=== PATIENT | female | born 1940 | race Caucasian/White ===

== ENCOUNTER → 2016-12-23 | Outpatient (CLI) | payer BC | END | disposition home or self-care (01) | LOC: C.PAPS 14:54 | PROVIDERS: ATTEND Obstetrics & Gynecology | DX: Z12.4 Encounter for screening for malignant neoplasm of cervix (principal) ==

== ENCOUNTER → 2017-01-02 | Outpatient (CLI) | payer BC ==
--- NOTE | 2017-01-02 17:16 | DIAGNOSTIC IMAGING REPORT ---
RIGHT FOOT 3 VIEWS, RIGHT ANKLE 3 VIEWS HISTORY: S99.921A Right foot [id number] Right COMPARISON: None. FINDINGS: There is no fracture or dislocation. Mild soft tissue swelling within the right ankle. There is a small posterior calcaneal spur. No radiopaque foreign bodies. IMPRESSION: No fracture or dislocation within the right ankle or right foot. Electronically signed by: Richar Joy M.D. 01/02/2017 5:15 PM Dictated Date/Time: 01/02/2017 5:12 PM
--- NOTE | 2017-01-02 17:16 | DIAGNOSTIC IMAGING REPORT ---
RIGHT FOOT 3 VIEWS, RIGHT ANKLE 3 VIEWS HISTORY: S99.921A Right foot [id number] Right COMPARISON: None. FINDINGS: There is no fracture or dislocation. Mild soft tissue swelling within the right ankle. There is a small posterior calcaneal spur. No radiopaque foreign bodies. IMPRESSION: No fracture or dislocation within the right ankle or right foot. Electronically signed by: Richar Joy M.D. 01/02/2017 5:15 PM Dictated Date/Time: 01/02/2017 5:12 PM
== END | disposition home or self-care (01) ==
LOC: C.RAD1850 16:53
PROVIDERS: ATTEND Nurse Practitioner Adult Health
DX: S99.911A Unspecified injury of right ankle, initial encounter (principal); S99.921A Unspecified injury of right foot, initial encounter; X58.XXXA Exposure to other specified factors, initial encounter

== ENCOUNTER → 2017-03-24 | Outpatient (CLI) | payer BC ==
[~2017-03-24] MED LIST: CHOL1000 PO; CHOLTAB11 PO; COEN1CAP28 PO; CONJ0.3T3 PO; CYAN10005 PO; CYAN500T PO; GINS1CAP PO; GLC/500 PO; GLUC10007 PO; GLUC500T35 PO; LPT40 PO; OMEG10007 PO; PLV75 PO
--- NOTE | 2017-03-24 16:45 | MAMMOGRAPHY REPORT ---
BILATERAL DIGITAL SCREENING MAMMOGRAM WITH CAD: 03/24/2017 CLINICAL HISTORY: Routine screening. Patient has no complaints. TECHNIQUE: Bilateral CC and MLO views were obtained. Current study was also evaluated with a Comput er Aided Detection (CAD) system. COMPARISON: Comparison is made to exams dated: 10/14/2013 mammogram, 10/08/2012 mammogram, 10/03/2011 mammogram, 09/14/2015 mammogram, 10/01/2010 mammogram, and 09/29/2009 mammogram - [facility]. BREAST COMPOSITION: There are scattered areas of fibroglandular density in both breasts. FINDINGS: There is a stable lymph node in the right breast. There are mild vascular calcifications in the left breast. No new suspicious mass, architectural distortion or cluster of microcalcificat ions is seen. IMPRESSION: ACR BI-RADS CATEGORY 2: BENIGN There is no mammographic evidence of malignancy. A 1 year screening mammogram is recommended. The p atient will receive written notification of the results. Approximately 10% of breast cancers are not detected with mammography. A negative mammographic repor t should not delay biopsy if a clinically suggestive mass is present. Lana Zhang M.D. ay/:03/24/2017 16:07:14 Rental Sales Agent: Daily SHERMAN(R)(M), [facility] letter sent: Normal 1/2 BI-RADS Code: ACR BI-RADS Category 2: Benign
== END | disposition home or self-care (01) ==
LOC: C.MAMM 15:23
PROVIDERS: ATTEND Obstetrics & Gynecology
DX: Z12.31 Encounter for screening mammogram for malignant neoplasm of breast (principal)

== ENCOUNTER → 2017-09-11 | Outpatient (CLI) | payer BC ==
[2017-09-11 10:06] LABS: ALT/SGPT 34 U/L (12-78); AST/SGOT 26 U/L (15-37); BLOOD UREA NITROGEN 17 mg/dl (7-18); BUN/CREATININE RATIO 17.2 (10-20); CALCIUM 9.2 mg/dl (8.5-10.1); CARBON DIOXIDE 25 mmol/L (21-32); CHLORIDE 104 mmol/L (98-107); CHOLESTEROL 269 mg/dl (0-200); CREATININE 0.97 mg/dl (0.60-1.20); GLUCOSE 173 mg/dl (70-99); POTASSIUM 4.1 mmol/L (3.5-5.1); SODIUM 138 mmol/L (136-145); TRIGLYCERIDES 270 mg/dl (0-150); VERY LOW DENSITY LIPOPROT CALC 54 mg/dl
[2017-09-11 10:15] LABS: ALKALINE PHOSPHATASE 70 U/L (45-117); CHOLESTEROL/HDL RATIO 7.7; HDL CHOLESTEROL 35 mg/dl; LDL CHOLESTEROL CALCULATED 180 mg/dl
[2017-09-11 14:39] LABS: ESTIMATED AVERAGE GLUCOSE 169 mg/dl; HA1C FLAG Normal (Normal)
== END | disposition home or self-care (01) ==
LOC: C.LAB1850 08:42
PROVIDERS: ATTEND Physician Assistant Medical
DX: E11.9 Type 2 diabetes mellitus without complications (principal); E78.5 Hyperlipidemia, unspecified; I10 Essential (primary) hypertension

== ENCOUNTER 2017-10-25 09:44 | Inpatient (IN) | payer BC, OTHER ==
[~2017-10-25] VITALS: Ht 160 cm; Wt 79.5 kg
[2017-10-25] MEDS ORDERED: ACETAMINOPHEN 500 MG TAB PO STA (10:00)
[2017-10-25] MEDS ORDERED: METOCLOPRAMIDE HCL INJ 5 MG/ML 2 ML VIAL IV STA (10:00)
--- NOTE | 2017-10-25 10:02 | EMERGENCY ROOM VISIT NOTE ---
History Report prepared by Marcelina: Jami Slaughter Under the Supervision of: Dr. Yimi Davis M.D. First contact with patient: 09:55 Chief Complaint: STROKE SYMPTOMS Stated Complaint: BLURRY VISION, CAN'T WALK Nursing Triage Summary: pt reports feeling dizzy last night prior to bed when she awoke this am unable to get out of bed. felt like left leg not putting it down right. no problems with chocolate maker. had foot drag earlier. had blurred vision upon waking still not right History of Present Illness The patient is a 77 year old white female with a past medical history of diabetes who presents to the ED with a cc of intermittent stroke symptoms beginning around 1630 yesterday afternoon. Positive dizzy spells, blurred vision , and difficulty ambulating. The patient states that her symptoms began yesterday with dizzy spells. She states that her vision then became blurry and then states that she had difficulty walking. The patient states that she recently began metformin, noting that she developed a headache when she began the medication. Source of History: patient Onset: 1630 yesterday afternoon Position: other (global) Quality: other (stroke symptoms) Timing: intermittent Note: Associated symptoms: dizzy spells, blurred vision, difficulty ambulating Review of Systems See HPI for pertinent positives and negatives. A total of ten systems were reviewed and were otherwise negative. Past Medical & Surgical Medical Problems: (1) Acute cerebral infarction (2) Diabetes (3) possibel cva Family History No pertinent family history stated Social History Smoking Status: Never Smoker Marital Status: Current/Historical Medications Scheduled Cholecalciferol (Vitamin D3), 1,000 INTER.UNIT PO DAILY Cyanocobalamin (Vitamin B-12), 500 MCG PO DAILY Estrog Conj/Medryoxyprog Acet (Prempro 0.3MG/1.5MG), 1 TAB PO DAILY Ginseng (Ginseng Extract), 100 MG PO DAILY Glucosamine Sulfate (Glucosamine), 1,000 MG PO DAILY Metformin Hcl (Glucophage), 500 MG PO DAILY Miscellaneous Medications Fish Oil ([place]-3), 1 CAP PO Allergies Coded Allergies: Codeine (Unverified Allergy, Unknown, ANXIOUS, 10/25/17) Penicillins (Unverified Allergy, Unknown, RASH, 10/25/17) Physical Exam Vital Signs Date Time Temp Pulse Resp B/P (MAP) Pulse Ox O2 Delivery O2 Flow Rate FiO2 10/25/17 13:30 64 10/25/17 13:15 76 18 191/83 97 Room Air 10/25/17 10:18 76 16 183/84 97 Room Air 10/25/17 09:59 97 Room Air 10/25/17 09:45 36.9 82 18 210/99 99 Room Air Physical Exam GENERAL: Awake, alert, well-appearing, NAD HENT: Normocephalic, atraumatic. EYES: Normal conjunctiva. Sclera non-icteric. NECK: Supple. No nuchal rigidity. FROM. RESPIRATORY: CTAB, no rhonchi, wheezing, crackles CARDIAC: RRR, no MRG ABDOMEN: Soft, NTND, BS+ MSK: No chest wall TTP, no LE edema NEURO: CN 2-12 intact, 5/5 upper and lower extremity strength, questionable pronator drift of left upper extremity, some dysmetria with finger to nose, no sensory deficits. SKIN: No rash or jaundice noted. Medical Decision & Procedures ER Provider Diagnostic Interpretation: Radiology results as stated below per my review and radiologist interpretation: ANGIOGRAPHY HEAD COMBO CLINICAL HISTORY: Weakness. Blurry vision. COMPARISON STUDY: MRI of the brain March 27, 2009. TECHNIQUE: Unenhanced and arterial phase imaging of the head was performed. Injection of 118 cc of Optiray 320 IV was uneventful. Sagittal and coronal reconstructions were viewed as well as maximal intensity projections on an independent 3-D workstation. FINDINGS: No acute intracranial hemorrhage, midline shift or mass effect is present. Ventricular system is normal. Basilar cisterns are patent. There are no extra-axial collections. 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 Mild white matter hypodensity suggests small vessel disease. There are no findings to suggest acute dural sinus thrombosis or acute territorial infarct. Visualized portions of the sinuses and mastoid air cells are clear. There are no significant calvarial abnormality. The bilateral M1, M2, A1 and A2 segments are patent. There is moderate to severe narrowing of the right supraclinoid ICA. There is moderate plaque within the bilateral cavernous carotids. There is persistence of the left posterior cerebral artery. Note is made of apparent abrupt cut off of the right posterior cerebral artery shown image 75 of 215. No intracranial aneurysm is identified. IMPRESSION: 1. No acute intracranial hemorrhage or mass effect. 2. Apparent abrupt cut off of the proximal middle right posterior cerebral artery. This could be correlated with evidence for an acute right CAFETERIA CASHIER infarct. 3. Moderate to severe stenosis of the supraclinoid right ICA. Electronically signed by: Stewart Anne M.D. 10/25/2017 12:10 PM Dictated Date/Time: 10/25/2017 11:59 AM CHEST ONE VIEW PORTABLE CLINICAL HISTORY: Weakness. COMPARISON STUDY: Chest radiograph June 26, 2015. FINDINGS: There is no pneumothorax or pleural effusion. Pulmonary vascularity is normal. No consolidation. There are median sternotomy wires and clips from bypass grafting. No consolidation is identified. IMPRESSION: No acute cardiopulmonary findings. Electronically signed by: Stewart Anne M.D. 10/25/2017 11:41 AM Dictated Date/Time: 10/25/2017 11:[address] ANGIOGRAPHY OF THE NECK WITH CONTRAST CLINICAL HISTORY: Weakness COMPARISON STUDY: No previous studies for comparison. Technique: CT angiography of the carotid and vertebral arteries was obtained using Patience 320 IV and 3D reconstruction on an independent workstation. NASCET criteria was utilized. A dose lowering technique was utilized adhering to the principles of ALARA. CT DOSE: 1064.33 mGy.cm Findings: There is moderate plaque within the bilateral distal common carotid and internal carotid arteries with mild stenosis of the proximal bilateral internal carotid arteries bilaterally. 40% narrowing of the proximal right internal carotid artery is noted with 20% narrowing of the proximal left internal carotid artery. The left vertebral artery is dominant and patent. The right vertebral artery is not opacified within its proximal to mid aspect. There is distal reconstitution. The right vertebral artery is diminutive. There is no cervical lymphadenopathy. Lung apices are clear. Median sternotomy wires are noted. IMPRESSION: 1. 40% stenosis of the proximal right internal carotid artery and 20% stenosis of the proximal left internal carotid artery. Moderate atherosclerotic plaque within the bilateral common carotid and internal carotid arteries. 2. No contrast within the proximal to mid right vertebral artery with distal reconstitution. Dominant, patent left vertebral artery. Electronically signed by: Stewart Anne M.D. 10/25/2017 12:18 PM Dictated Date/Time: 10/25/2017 12:12 PM Laboratory Results 10/25/17 10:07 Red Blood Count 4.99, Mean Corpuscular Volume 89.8, Mean Corpuscular Hemoglobin 30.3, Mean Corpuscular Hemoglobin Concent 33.7, Mean Platelet Volume 10.8, Neutrophils (%) (Auto) 65.2, Lymphocytes (%) (Auto) 26.0, Monocytes (%) (Auto) 6.9, Eosinophils (%) (Auto) 1.4, Basophils (%) (Auto) 0.3, Neutrophils # (Auto) 7.95, Lymphocytes # (Auto) 3.17, Monocytes # (Auto) 0.84, Eosinophils # (Auto) 0.17, Basophils # (Auto) 0.04 10/25/17 10:07 Test 10/25/17 10:07 10/25/17 11:15 White Blood Count 12.19 K/uL (4.8-10.8) Red Blood Count 4.99 M/uL (4.2-5.4) Hemoglobin 15.1 g/dL (12.0-16.0) Hematocrit 44.8 % (37-47) Mean Corpuscular Volume 89.8 fL (80-100) Mean Corpuscular Hemoglobin 30.3 pg (25-34) Mean Corpuscular Hemoglobin Concent 33.7 g/dl (32-36) Platelet Count 350 K/uL (130-400) Mean Platelet Volume 10.8 fL (7.4-10.4) Neutrophils (%) (Auto) 65.2 % Lymphocytes (%) (Auto) 26.0 % Monocytes (%) (Auto) 6.9 % Eosinophils (%) (Auto) 1.4 % Basophils (%) (Auto) 0.3 % Neutrophils # (Auto) 7.95 K/uL (1.4-6.5) Lymphocytes # (Auto) 3.17 K/uL (1.2-3.4) Monocytes # (Auto) 0.84 K/uL (0.11-0.59) Eosinophils # (Auto) 0.17 K/uL (0-0.5) Basophils # (Auto) 0.04 K/uL (0-0.2) RDW Standard Deviation 43.6 fL (36.4-46.3) RDW Coefficient of Variation 13.3 % (11.5-14.5) Immature Granulocyte % (Auto) 0.2 % Immature Granulocyte # (Auto) 0.02 K/uL (0.00-0.02) Prothrombin Time 10.2 SECONDS (9.0-12.0) Prothromb Time International Ratio 1.0 (0.9-1.1) Activated Partial Thromboplast Time 23.4 SECONDS (21.0-31.0) Partial Thromboplastin Ratio 0.9 Anion Gap 7.0 mmol/L (3-11) Est Creatinine Clear Calc Drug Dose 51.3 ml/min Estimated GFR () 67.1 Estimated GFR (Non- 57.9 BUN/Creatinine Ratio 17.2 (10-20) Calcium Level 9.6 mg/dl (8.5-10.1) Phosphorus Level 2.0 mg/dl (2.5-4.9) Magnesium Level 2.1 mg/dl (1.8-2.4) Total Bilirubin 0.4 mg/dl (0.2-1) Direct Bilirubin < 0.1 mg/dl (0-0.2) Aspartate Amino Transf (AST/SGOT) 32 U/L (15-37) Alanine Aminotransferase (ALT/SGPT) 41 U/L (12-78) Alkaline Phosphatase 90 U/L (45-117) Troponin I < 0.015 ng/ml (0-0.045) Total Protein 8.2 gm/dl (6.4-8.2) Albumin 4.1 gm/dl (3.4-5.0) Thyroid Stimulating Hormone (TSH) 1.810 uIu/ml (0.300-4.500) Urine Color YELLOW Urine Appearance CLEAR (CLEAR) Urine pH 5.0 (4.5-7.5) Urine Specific [place] 1.013 (1.000-1.030) Urine Protein NEG (NEG) Urine Glucose (UA) NEG (NEG) Urine Ketones NEG (NEG) Urine Occult Blood NEG (NEG) Urine Nitrite NEG (NEG) Urine Bilirubin NEG (NEG) Urine Urobilinogen NEG (NEG) Urine Leukocyte Esterase SMALL (NEG) Urine WBC (Auto) 1-5 /hpf (0-5) Urine RBC (Auto) 0-4 /hpf (0-4) Urine Hyaline Casts (Auto) 1-5 /lpf (0-5) Urine Epithelial Cells (Auto) >30 /lpf (0-5) Urine Bacteria (Auto) NEG (NEG) Urine Yeast (Auto) (NONE PRSENT) Laboratory results reviewed by me Medications Administered Medications (Trade) Dose Ordered Sig/Flor Route Start Time Stop Time Status Last Admin Dose Admin Metoclopramide HCl (Reglan Inj) 10 mg NOW STAT IV 10/25/17 10:00 10/25/17 10:05 DC 10/25/17 10:40 10 MG Acetaminophen (Tylenol Tab) 1,000 mg NOW STAT PO 10/25/17 10:00 10/25/17 10:05 DC 10/25/17 10:40 1,000 MG Aspirin (Aspirin Chew) 324 mg NOW STAT PO 10/25/17 12:22 10/25/17 12:23 DC 10/25/17 13:14 324 MG Atorvastatin Calcium (Lipitor Tab) 40 mg ONE STAT PO 10/25/17 12:22 10/25/17 12:23 DC 10/25/17 13:14 40 MG ECG Indication: weakness Rate (beats per minute): 90 Rhythm: normal sinus Findings: PVC (occasional), other (normal intervals, T wave flattening laterally, no other STS or TWI) ED Course 0955: The patient was evaluated in room B1. A complete history and physical exam was performed. 1207: I discussed the patients case with Dr. Anne, Radiology. He states that the patient has a CAFETERIA CASHIER infarct. 1225: I reevaluated the patient and she is resting comfortably. I discussed the exam findings with her and I discussed the treatment plan. She verbalized complete understanding and agreement. She is going to be evaluated for further treatment. 1229: I discussed the patients case with Dr. West, [facility]. He is going to evaluate the patient for further treatment. Medical Decision Differential diagnosis: Etiologies such as benign positional vertigo, dehydration, hypovolemia, anemia, tumor, infection, hypoglycemia, electrolyte abnormalities, cardiac sources, intracerebral event, toxicologic, neurologic, as well as others were entertained. Patient was seen and evaluated at the bedside. Patient states that she has been having some mild headache as well as some vertiginous symptoms stating that she has some imbalance problems. Patient does not really complain of dizziness with room spinning but states that if she gets up she does not feel safe and as though she is going to fall. has 1 recent medication change medicines with the metformin. Patient states that her sugars been fairly consistent. Patient point care blood sugar today was under 200. Patient is hypertensive in the 210s systolic. Patient's neuro exam did show questionable left upper extremity drift as well as some mild dysmetria on the left upper extremity. Patient does have good [id number] and no sensory deficits. The rest of the neuro exam is fairly unremarkable. Patient states her symptoms began and have been somewhat intermittent beginning around 4:35 PM yesterday. Patient denies any recent trauma. Patient did have her blood work completed. Patient had some mild hypophosphatemia. Patient's CTA was concerning for possible CAFETERIA CASHIER infarct and occlusion. She is well outside the window given her symptoms began at 430pm yesterday thus TPA was not administered. Patient was ordered a full dose aspirin as well as high-dose statin. I did speak with the hospitalist who agreed to admit the patient for further evaluation and treatment. Medication Reconcilliation Current Medication List: was personally reviewed by me Blood Pressure Screening Patient's blood pressure: Elevated blood pressure Blood pressure disposition: Referred to PCP (to hospitalist) Consults Time Called: 1221 Consulting Physician: FELIX Michael Returned Call: 1229 I discussed the patients case with FELIX Michael. He is going to evaluate the patient for further treatment. Impression Primary Impression: CVA (cerebral vascular accident) Additional Impression: Dysmetria Scribe Attestation The scribe's documentation has been prepared under my direction and personally reviewed by me in its entirety. I confirm that the note above accurately reflects all work, treatment, procedures, and medical decision making performed by me. Departure Information Dispostion Being Evaluated By Hospitalist Referrals Roverto Lang M.D. (PCP) Stroke History Time Last Known Well 1630 yesterday Stroke t-PA Criteria Reviewed Does NOT meet criteria for t-PA Reason t-PA Not Given Treatment provided - N/A, Treatment not indicated (Patient is outside the window for TPA) Problem Qualifiers Primary Impression: CVA (cerebral vascular accident) CVA mechanism: occlusion Precerebral and cerebral artery: posterior cerebral artery Laterality of affected vessel: right Qualified Codes: I63.531 - Cerebral infarction due to unspecified occlusion or stenosis of right posterior cerebral artery
[2017-10-25] MEDS ORDERED: OPTIRAY 320 IV PRN (10:15)
[2017-10-25 10:24] LABS: BASO % 0.3 %; BASO ABS # 0.04 K/uL (0-0.2); EOS % 1.4 %; EOS ABS # 0.17 K/uL (0-0.5); HEMATOCRIT 44.8 % (37-47); HEMOGLOBIN 15.1 g/dL (12.0-16.0); IG# 0.02 K/uL (0.00-0.02); LYMPH ABS # 3.17 K/uL (1.2-3.4); MEAN CELL VOLUME 89.8 fL (80-100); MEAN CORPUSCULAR HEMOGLOBIN 30.3 pg (25-34); MEAN CORPUSCULAR HGB CONC 33.7 g/dl (32-36); MEAN PLATELET VOLUME 10.8 fL (7.4-10.4); MONO % 6.9 %; MONO ABS # 0.84 K/uL (0.11-0.59); NEUT % 65.2 %; NEUT ABS # 7.95 K/uL (1.4-6.5); PLATELET COUNT 350 K/uL (130-400); RED CELL DISTRIBUTION WIDTH CV 13.3 % (11.5-14.5); RED CELL DISTRIBUTION WIDTH SD 43.6 fL (36.4-46.3); WHITE BLOOD COUNT 12.19 K/uL (4.8-10.8)
[2017-10-25 10:32] LABS: PTT PATIENT 23.4 SECONDS (21.0-31.0)
[2017-10-25 10:33] LABS: ALBUMIN 4.1 gm/dl (3.4-5.0); ALT/SGPT 41 U/L (12-78); BLOOD UREA NITROGEN 16 mg/dl (7-18); CALCIUM 9.6 mg/dl (8.5-10.1); CARBON DIOXIDE 26 mmol/L (21-32); CREATININE 0.96 mg/dl (0.60-1.20); GLUCOSE 165 mg/dl (70-99); POTASSIUM 3.8 mmol/L (3.5-5.1); SODIUM 137 mmol/L (136-145)
[2017-10-25 10:44] LABS: ALKALINE PHOSPHATASE 90 U/L (45-117); AST/SGOT 32 U/L (15-37); TOTAL PROTEIN 8.2 gm/dl (6.4-8.2)
[2017-10-25] MEDS ORDERED: GLC/500 PO (10:53)
[2017-10-25] MEDS ORDERED: CONJ0.3T3 PO (10:53)
[2017-10-25] MEDS ORDERED: GINS1CAP PO (10:54)
[2017-10-25] MEDS ORDERED: OMEG10007 PO (10:54)
[2017-10-25] MEDS ORDERED: CHOL1000 PO (10:54)
[2017-10-25] MEDS ORDERED: CYAN500T PO (10:54)
[2017-10-25] MEDS ORDERED: GLUC10007 PO (10:54)
--- NOTE | 2017-10-25 11:42 | DIAGNOSTIC IMAGING REPORT ---
CHEST ONE VIEW PORTABLE CLINICAL HISTORY: Weakness. COMPARISON STUDY: Chest radiograph June 26, 2015. FINDINGS: There is no pneumothorax or pleural effusion. Pulmonary vascularity is normal. No consolidation. There are median sternotomy wires and clips from bypass grafting. No consolidation is identified. IMPRESSION: No acute cardiopulmonary findings. Electronically signed by: Stewart Anne M.D. 10/25/2017 11:41 AM Dictated Date/Time: 10/25/2017 11:40 AM
--- NOTE | 2017-10-25 12:11 | DIAGNOSTIC IMAGING REPORT ---
ANGIOGRAPHY HEAD COMBO CLINICAL HISTORY: Weakness. Blurry vision. COMPARISON STUDY: MRI of the brain March 27, 2009. TECHNIQUE: Unenhanced and arterial phase imaging of the head was performed. Injection of 118 cc of Optiray 320 IV was uneventful. Sagittal and coronal reconstructions were viewed as well as maximal intensity projections on an independent 3-D workstation. FINDINGS: No acute intracranial hemorrhage, midline shift or mass effect is present. Ventricular system is normal. Basilar cisterns are patent. There are no extra-axial collections. 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 Mild white matter hypodensity suggests small vessel disease. There are no findings to suggest acute dural sinus thrombosis or acute territorial infarct. Visualized portions of the sinuses and mastoid air cells are clear. There are no significant calvarial abnormality. The bilateral M1, M2, A1 and A2 segments are patent. There is moderate to severe narrowing of the right supraclinoid ICA. There is moderate plaque within the bilateral cavernous carotids. There is persistence of the left posterior cerebral artery. Note is made of apparent abrupt cut off of the right posterior cerebral artery shown image 75 of 215. No intracranial aneurysm is identified. IMPRESSION: 1. No acute intracranial hemorrhage or mass effect. 2. Apparent abrupt cut off of the proximal middle right posterior cerebral artery. This could be correlated with evidence for an acute right TAG [employer]ESS O[employer]ATOR infarct. 3. Moderate to severe stenosis of the supraclinoid right ICA. Electronically signed by: Stewart Anne M.D. 10/25/2017 12:10 PM Dictated Date/Time: 10/25/2017 11:59 AM
--- NOTE | 2017-10-25 12:20 | DIAGNOSTIC IMAGING REPORT ---
CT ANGIOGRAPHY OF THE NECK WITH CONTRAST CLINICAL HISTORY: Weakness COMPARISON STUDY: No previous studies for comparison. Technique: CT angiography of the carotid and vertebral arteries was obtained using Pirq 320 IV and 3D reconstruction on an independent workstation. NASCET criteria was utilized. A dose lowering technique was utilized adhering to the principles of ALARA. CT DOSE: 1064.33 mGy.cm Findings: There is moderate plaque within the bilateral distal common carotid and internal carotid arteries with mild stenosis of the proximal bilateral internal carotid arteries bilaterally. 40% narrowing of the proximal right internal carotid artery is noted with 20% narrowing of the proximal left internal carotid artery. The left vertebral artery is dominant and patent. The right vertebral artery is not opacified within its proximal to mid aspect. There is distal reconstitution. The right vertebral artery is diminutive. There is no cervical lymphadenopathy. Lung apices are clear. Median sternotomy wires are noted. IMPRESSION: 1. 40% stenosis of the proximal right internal carotid artery and 20% stenosis of the proximal left internal carotid artery. Moderate atherosclerotic plaque within the bilateral common carotid and internal carotid arteries. 2. No contrast within the proximal to mid right vertebral artery with distal reconstitution. Dominant, patent left vertebral artery. Electronically signed by: Stewart Anne M.D. 10/25/2017 12:18 PM Dictated Date/Time: 10/25/2017 12:12 PM
[2017-10-25] MEDS ORDERED: ASPIRIN 324 MG CHEW PO STA (12:22)
[2017-10-25] MEDS ORDERED: ATORVASTATIN 40 MG TAB PO STA (12:22)
[2017-10-25] MEDS ORDERED: ACETAMINOPHEN 325 MG TAB PO PRN (13:30)
[2017-10-25] MEDS ORDERED: PHARMACIST DISCHARGE MED REC CONSULT PRN (13:30)
[2017-10-25] MEDS ORDERED: GLUCOSE 10 TABS/TUBE PO PRN (13:30)
[2017-10-25] MEDS ORDERED: ONDANSETRON INJ 2 MG/ML 2 ML VIAL IV PRN (13:30)
[2017-10-25] MEDS ORDERED: GLUCOSE 40% GEL 15 GM TUBE PO PRN (13:30)
[2017-10-25] MEDS ORDERED: GLUCAGON FOR INJ 1 MG VIAL SQ PRN (13:30)
[2017-10-25] MEDS ORDERED: MAGNESIUM HYDROXIDE SUSP 30 ML UDC PO PRN (13:30)
[2017-10-25] MEDS ORDERED: DEXTROSE 50% 50 ML SYR IV PRN (13:30)
[2017-10-25 14:05] VITALS: O2SAT 97; BMI 32.0
--- NOTE | 2017-10-25 14:11 | History and Physical ---
History & Physical Date & Time of Service: Oct 25, 2017 at 13:48 Chief Complaint: Blurry Vision, Can't Walk Primary Care Physician: Roverto Lang M.D. History of Present Illness Source: patient, family Patient is a 77-year-old female with a past medical history of diabetes that presents with a 1 day history of dizziness and blurriness of vision. The patient began having symptoms yesterday at 6:30 PM that began with having dizzy spells and then progressed of blurry vision and difficulty ambulating. The patient states that these episodes were intermittent and would last for a few minutes and then come and go. She denies any headache, spinning of the room, fevers, chills, vomiting. She states that she has recently started metformin and had associated headaches. The patient denies any facial droop, double vision, difficulty swallowing, slurred speech, difficulty with balance, or any other acute complaints. When in the ED the patient was given a dose of Reglan and her nausea appeared to have improved. At this time she is lying in bed and denies any acute symptoms, and is feeling better. Past Medical/Surgical History Medical Problems: (1) Diabetes Status: Chronic Social History Smoking Status: Never Smoker Marital Status: Multi-Drug Resistant Organisms History of MDRO: No Allergies Coded Allergies: Codeine (Unverified Allergy, Unknown, ANXIOUS, 10/25/17) Penicillins (Unverified Allergy, Unknown, RASH, 10/25/17) Home Medications Scheduled Cholecalciferol (Vitamin D3), 1,000 INTER.UNIT PO DAILY Cyanocobalamin (Vitamin B-12), 500 MCG PO DAILY Estrog Conj/Medryoxyprog Acet (Prempro 0.3MG/1.5MG), 1 TAB PO DAILY Ginseng (Ginseng Extract), 100 MG PO DAILY Glucosamine Sulfate (Glucosamine), 1,000 MG PO DAILY Metformin Hcl (Glucophage), 500 MG PO DAILY Miscellaneous Medications Fish Oil ([place]-3), 1 CAP PO Review of Systems Constitutional: No fever, No chills, No fatigue Eyes: No worsening of vision, No diplopia Respiratory: No cough, No wheezing, No shortness of breath Cardiovascular: No chest pain, No palpitations Abdomen: No pain, No nausea, No vomiting, No diarrhea Neurologic: No paralysis, No weakness, No numbness/tingling Psychiatric: No anxiety Physical Exam Vital Signs Date Time Temp Pulse Resp B/P (MAP) Pulse Ox O2 Delivery O2 Flow Rate FiO2 10/25/17 13:30 64 10/25/17 13:15 76 18 191/83 97 Room Air 10/25/17 10:18 76 16 183/84 97 Room Air 10/25/17 09:59 97 Room Air 10/25/17 09:45 36.9 82 18 210/99 99 Room Air General Appearance: WD/WN, no apparent distress Head: normocephalic, atraumatic Eyes: normal inspection, PERRL, EOMI, sclerae normal Neck: supple, no carotid bruits Respiratory/Chest: chest non-tender, lungs clear, normal breath sounds Cardiovascular: regular rate, rhythm, no edema, no gallop, no murmur Abdomen/GI: normal bowel sounds, non tender, soft Neurologic/Psych: microbiology manager II-XII nml as tested, alert, normal mood/affect, normal reflexes, oriented x 3, + pertinent finding (mild pronator drift of left arm, strength 5 out of 5 in upper and lower extremities, sensation intact over upper and lower extremities, no visible facial droop, alert and oriented 3, good mentation) Diagnostics Laboratory Results Results Past 24 Hours Test 10/25/17 09:58 10/25/17 10:07 10/25/17 11:15 Range/Units Bedside Glucose 179 70-90 mg/dl White Blood Count 12.19 4.8-10.8 K/uL Red Blood Count 4.99 4.2-5.4 M/uL Hemoglobin 15.1 12.0-16.0 g/dL Hematocrit 44.8 37-47 % Mean Corpuscular Volume 89.8 80-100 fL Mean Corpuscular Hemoglobin 30.3 25-34 pg Mean Corpuscular Hemoglobin Concent 33.7 32-36 g/dl Platelet Count 350 130-400 K/uL Mean Platelet Volume 10.8 7.4-10.4 fL Neutrophils (%) (Auto) 65.2 % Lymphocytes (%) (Auto) 26.0 % Monocytes (%) (Auto) 6.9 % Eosinophils (%) (Auto) 1.4 % Basophils (%) (Auto) 0.3 % Neutrophils # (Auto) 7.95 1.4-6.5 K/uL Lymphocytes # (Auto) 3.17 1.2-3.4 K/uL Monocytes # (Auto) 0.84 0.11-0.59 K/uL Eosinophils # (Auto) 0.17 0-0.5 K/uL Basophils # (Auto) 0.04 0-0.2 K/uL RDW Standard Deviation 43.6 36.4-46.3 fL RDW Coefficient of Variation 13.3 11.5-14.5 % Immature Granulocyte % (Auto) 0.2 % Immature Granulocyte # (Auto) 0.02 0.00-0.02 K/uL Prothrombin Time 10.2 9.0-12.0 SECONDS Prothromb Time International Ratio 1.0 0.9-1.1 Activated Partial Thromboplast Time 23.4 21.0-31.0 SECONDS Partial Thromboplastin Ratio 0.9 Sodium Level 137 136-145 mmol/L Potassium Level 3.8 3.5-5.1 mmol/L Chloride Level 104 98-107 mmol/L Carbon Dioxide Level 26 21-32 mmol/L Anion Gap 7.0 3-11 mmol/L Blood Urea Nitrogen 16 7-18 mg/dl Creatinine 0.96 0.60-1.20 mg/dl Est Creatinine Clear Calc Drug Dose 51.3 ml/min Estimated GFR () 67.1 Estimated GFR (Non- 57.9 BUN/Creatinine Ratio 17.2 10-20 Random Glucose 165 70-99 mg/dl Calcium Level 9.6 8.5-10.1 mg/dl Phosphorus Level 2.0 2.5-4.9 mg/dl Magnesium Level 2.1 1.8-2.4 mg/dl Total Bilirubin 0.4 0.2-1 mg/dl Direct Bilirubin < 0.1 0-0.2 mg/dl Aspartate Amino Transf (AST/SGOT) 32 15-37 U/L Alanine Aminotransferase (ALT/SGPT) 41 12-78 U/L Alkaline Phosphatase 90 45-117 U/L Troponin I < 0.015 0-0.045 ng/ml Total Protein 8.2 6.4-8.2 gm/dl Albumin 4.1 3.4-5.0 gm/dl Thyroid Stimulating Hormone (TSH) 1.810 0.300-4.500 uIu/ml Urine Color YELLOW Urine Appearance CLEAR CLEAR Urine pH 5.0 4.5-7.5 Urine Specific [place] 1.013 1.000-1.030 Urine Protein NEG NEG Urine Glucose (UA) NEG NEG Urine Ketones NEG NEG Urine Occult Blood NEG NEG Urine Nitrite NEG NEG Urine Bilirubin NEG NEG Urine Urobilinogen NEG NEG Urine Leukocyte Esterase SMALL NEG Urine WBC (Auto) 1-5 0-5 /hpf Urine RBC (Auto) 0-4 0-4 /hpf Urine Hyaline Casts (Auto) 1-5 0-5 /lpf Urine Epithelial Cells (Auto) >30 0-5 /lpf Urine Bacteria (Auto) NEG NEG Urine Yeast (Auto) NONE PRSENT Diagnostic Radiology [facility] [place] [address] Dictated: 10/25/171211 Transcribed: 10/25/171211 JA Printed Date/Time: [~ rep prt dt]/[~ rep prt tm] Patient: LARA MARIE I Address1: [address] [place] [address] Rec: [id number] Address2: Acct ID: [id number] [facility] Zip: [place] [address] Date: 1940 Sex: F Room/Bed: Ref Phy: Roverto Lang M.D. SC: KELLE Att Phy: Report #: [id number] Laura Phy: Roverto Lang M.D. Test: [id number] Admit Phy: Intermediate Card Tender: ARNAUD Interpreting Phy: Stewart Anne MD Diagnosis: BLURRY VISION, CAN'T WALK Ordering Phy: Yimi Davis M.D. Service Date: 10/25/17 Admit Date: 10/25/17 MNE: [id number] CONF: DICTATED BY: Stewart Anne MD]] CC: Yimi Davis M.D. Saleeby, Hussam G., M.D. Endcc: [~ rep ct add3]] CT ANGIOGRAPHY OF THE NECK WITH CONTRAST CLINICAL HISTORY: Weakness COMPARISON STUDY: No previous studies for comparison. Technique: CT angiography of the carotid and vertebral arteries was obtained using Pocket [employer] 320 IV and 3D reconstruction on an independent workstation. NASCET criteria was utilized. A dose lowering technique was utilized adhering to the principles of ALARA. CT DOSE: 1064.33 mGy.cm Findings: There is moderate plaque within the bilateral distal common carotid and internal carotid arteries with mild stenosis of the proximal bilateral internal carotid arteries bilaterally. 40% narrowing of the proximal right internal carotid artery is noted with 20% narrowing of the proximal left internal carotid artery. The left vertebral artery is dominant and patent. The right vertebral artery is not opacified within its proximal to mid aspect. There is distal reconstitution. The right vertebral artery is diminutive. There is no cervical lymphadenopathy. Lung apices are clear. Median sternotomy wires are noted. IMPRESSION: 1. 40% stenosis of the proximal right internal carotid artery and 20% stenosis of the proximal left internal carotid artery. Moderate atherosclerotic plaque within the bilateral common carotid and internal carotid arteries. 2. No contrast within the proximal to mid right vertebral artery with distal reconstitution. Dominant, patent left vertebral artery. Electronically signed by: Stewart Anne M.D. 10/25/2017 12:18 PM Dictated Date/Time: 10/25/2017 12:12 PM The status of this report is Signed. Draft = Not yet reviewed or approved by Radiologist. Signed = Reviewed and approved by Radiologist. Patient: LARA MARIE I Address1: [address] [place] [address] Rec: [id number] [facility] [id number] Zip: [place] [address] Date: 1940 Sex: F Room/Bed: Ref Phy: Roverto Lang M.D. SC: KELLE Att Phy: Report #: [id number] Laura Phy: Roverto Lang M.D. Test: [id number] Admit Phy: Intermediate Card Tender: VIOLETA Interpreting Phy: Stewart Anne MD Diagnosis: BLURRY VISION, CAN'T WALK Ordering Phy: Yimi Davis M.D. Service Date: 10/25/17 Admit Date: 10/25/17 MNE: [id number] CONF: DICTATED BY: Stewart Anne MD]] CC: Yimi Davis M.D. Saleeby, Hussam G., M.D. Endcc: CHEST ONE VIEW PORTABLE CLINICAL HISTORY: Weakness. COMPARISON STUDY: Chest radiograph June 26, 2015. FINDINGS: There is no pneumothorax or pleural effusion. Pulmonary vascularity is normal. No consolidation. There are median sternotomy wires and clips from bypass grafting. No consolidation is identified. IMPRESSION: No acute cardiopulmonary findings. Electronically signed by: Stewart Anne M.D. 10/25/2017 11:41 AM Dictated Date/Time: 10/25/2017 11:40 AM The status of this report is Signed. Draft = Not yet reviewed or approved by Radiologist. Signed = Reviewed and approved by Radiologist. ANGIOGRAPHY HEAD COMBO CLINICAL HISTORY: Weakness. Blurry vision. COMPARISON STUDY: MRI of the brain March 27, 2009. TECHNIQUE: Unenhanced and arterial phase imaging of the head was performed. Injection of 118 cc of Optiray 320 IV was uneventful. Sagittal and coronal reconstructions were viewed as well as maximal intensity projections on an independent 3-D workstation. FINDINGS: No acute intracranial hemorrhage, midline shift or mass effect is present. Ventricular system is normal. Basilar cisterns are patent. There are no extra-axial collections. 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 Mild white matter hypodensity suggests small vessel disease. There are no findings to suggest acute dural sinus thrombosis or acute territorial infarct. Visualized portions of the sinuses and mastoid air cells are clear. There are no significant calvarial abnormality. The bilateral M1, M2, A1 and A2 segments are patent. There is moderate to severe narrowing of the right supraclinoid ICA. There is moderate plaque within the bilateral cavernous carotids. There is persistence of the left posterior cerebral artery. Note is made of apparent abrupt cut off of the right posterior cerebral artery shown image 75 of 215. No intracranial aneurysm is identified. IMPRESSION: 1. No acute intracranial hemorrhage or mass effect. 2. Apparent abrupt cut off of the proximal middle right posterior cerebral artery. 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 3. Moderate to severe stenosis of the supraclinoid right ICA. Electronically signed by: Stewart Anne M.D. 10/25/2017 12:10 PM Dictated Date/Time: 10/25/2017 11:59 AM EKG Normal sinus rhythm with no ST abnormalities and mildly prolonged QT Impression Assessment and Plan Patient is a 77-year-old female with a past medical history of diabetes that presents with one-day history of dizziness and blurry vision 1) Acute CVA - CTA Head reveals Right [employer] [place]GE Infarct (Abrupt cutoff of proximal middle right [employer] [place] ) with no hemorrhage or mass effect - CTA Neck shows 40% stenosis of R ICA and 20% stenosis of Proximal L ICA - CXR no acute cardiopulmonary abnormalities - Symptoms significantly beyond TPA criteria timeline - 1 point on NIH stroke scale for left arm pronator drift (ED doctor did appreciate left arm dysarthria for possible second point) - Admit to telemetry - Aspirin 325mg daily - Atorvastatin 40mg Daily - Permissive HTN for 24hr --> Order to call physician if SBP > 120 or DBP > 120 - Lipid Panel - HbA1c - Echo Complete - Neurology Consult - IV NS 50mls/hr - Swallow eval at bedside by nurse --> If pass can have regular diet - Stroke Order Set Followed - PT/OT ordered - Hold home Estrogen medication 2) Diabetes - Patiently currently on metformin at home - She states that her last HbA1c was greater than 7 - HbA1c ordered for tomorrow morning - Insulin sliding scale ordered - BSG checks 3) Hypertension - Permissive HTN as noted above - Consider antihypertensive medications after 24 hours based on BP trend 4) DVT - Heparin 5,000 units q8h 5) Code Status - Full Resuscitation Level of Care Telemetry Resuscitation Status FULL RESUSCITATION VTE Prophylaxis VTE Risk Assessment Done? Y/N: Yes Risk Level: High Given or contraindicated: Unfractionated heparin SQ
[2017-10-25] MEDS ORDERED: INSULIN ASPART 100 UNITS/ML 3 ML PEN SC SCH (16:00)
[2017-10-25 16:50] VITALS: BP 182/74; PULSE 73; TEMP 36.6; O2SAT 98
[2017-10-25] MEDS: METOCLOPRAMIDE HCL INJ 5 MG/ML 2 ML VIAL IV SCH ×2 (17:04→20:03)
[2017-10-25] MEDS: SODIUM CHLORIDE 0.9% 1000ML 1,000 ML IV SCH (17:04)
[2017-10-25] MEDS: HEPARIN SOD 5000 UNIT/0.5 ML CARP SQ SCH ×2 (17:07→22:00)
[2017-10-25] MEDS: INSULIN ASPART 100 UNITS/ML 3 ML PEN SC SCH ×2 (17:47→20:52)
[2017-10-25 20:00] VITALS: O2SAT 98
[2017-10-25 20:14] VITALS: BP 152/69; PULSE 70; TEMP 36.4; O2SAT 96
[2017-10-25 23:00] VITALS: BP 168/82; PULSE 79; TEMP 37; O2SAT 98
[2017-10-26] VITALS (9 sets, daily range): BP systolic 98–173; BP diastolic 63–96; PULSE 68–92; TEMP 36.3–37.4; O2SAT 93–97
[2017-10-26] MEDS: METOCLOPRAMIDE HCL INJ 5 MG/ML 2 ML VIAL IV SCH ×4 (03:29→21:47)
[2017-10-26] MEDS: SODIUM CHLORIDE 0.9% 1000ML 1,000 ML IV SCH (05:29)
[2017-10-26 06:55] LABS: BASO % 0.4 %; BASO ABS # 0.04 K/uL (0-0.2); EOS % 1.4 %; EOS ABS # 0.16 K/uL (0-0.5); HEMATOCRIT 41.9 % (37-47); HEMOGLOBIN 13.5 g/dL (12.0-16.0); IG# 0.02 K/uL (0.00-0.02); LYMPH % 38.6 %; LYMPH ABS # 4.38 K/uL (1.2-3.4); MEAN CELL VOLUME 89.9 fL (80-100); MEAN CORPUSCULAR HGB CONC 32.2 g/dl (32-36); MEAN PLATELET VOLUME 10.9 fL (7.4-10.4); MONO % 6.7 %; MONO ABS # 0.76 K/uL (0.11-0.59); NEUT % 52.7 %; NEUT ABS # 5.98 K/uL (1.4-6.5); PLATELET COUNT 320 K/uL (130-400); RED CELL DISTRIBUTION WIDTH CV 13.4 % (11.5-14.5); RED CELL DISTRIBUTION WIDTH SD 43.5 fL (36.4-46.3); WHITE BLOOD COUNT 11.34 K/uL (4.8-10.8)
[2017-10-26 07:17] LABS: CALCIUM 8.6 mg/dl (8.5-10.1); CREATININE 0.83 mg/dl (0.60-1.20); POTASSIUM 3.9 mmol/L (3.5-5.1)
--- NOTE | 2017-10-26 08:18 | Neurology Consultation ---
Neurology Consultation Date of Consultation: Oct 26, 2017. Attending Physician: Eduar Franco D.O. Primary Care Physician: Roverto Lang M.D. Reason for Consultation: The patient is a 77-year-old, who was asked to see the request of doctors Good and Jenna, for neurologic consultation regarding possible stroke. History of Present Illness Source: patient, caregiver, clinic records, hospital records I 1st saw this patient in March of 2009. At that time, she was having headaches , fatigue, and some nonspecific cognitive dysfunction post coronary artery bypass graft that was done in 2007. At that time, the patient had an MRI of the brain which showed a small old right cerebellar infarct. There were no new or other issues and I last saw her in May of 2009. At that time she was on 81 milligram aspirin tablet daily. She continues to be on this. The patient about 4 days prior to admission was initiated on metformin for diabetes. She believes this gave her headaches is uncertain if his giving her the dizziness. Patient was in her usual state of health when the morning of October 24 after being up for awhile she noted the sudden onset of some blurry vision of a nonspecific nature. There is no double vision or headache. There was no speech or confusion problem and there was no weakness or numbness of the limbs. This lasted a minute or so and occurred a few times briefly intermittently throughout the rest of the day. A little later on that day she had the onset of dizziness, which she describes as a lightheadedness and a wooziness. There was a sensation that she could not keep her balance but she did not have true vertigo. She did not have actual syncope. This is a waxed and waned for hours. Any increase in activity would make it worse and resting would make it better. She had no chest pain, shortness of breath, headaches, weakness or numbness of the limbs, her or incontinence. On October 25 she got up and still had the gait disturbance, intermittent blurry vision, and dizzy feelings as described above. She had some nausea but no vomiting. She arrived to the emergency room on October 25 at 0945 hours with a temperature of 36.9, pulse 82, respiratory rate 18, blood pressure 210/99, and O2 saturation 99 percent. Neurologic examination revealed some drift of the left upper extremity only. A CT scan of the head showed no obvious or acute stroke. I reviewed these films and discussed them with Dr. Espinoza, Radiology. CT angiography of the head showed a cutoff of the right posterior cerebral artery but there was good collateral circulation. CT angiography of the neck showed 40 percent stenosis in the right ICA, 20 percent stenosis in the left ICA , and decreased flow in the vertebrals. Chest x-ray was unremarkable. Urinalysis was unremarkable. CBC showed a mildly elevated white count with normal hemoglobin hematocrit. Chem profile showed elevated glucose of approximately 150. This morning, the patient feels quite back to baseline with no dizziness, blurry vision, lightheadedness, or other symptoms. She went up and walk to the bathroom without symptomatology of gait issues or dizziness. Past Medical/Surgical History Medical Problems: (1) CVA (cerebral vascular accident) Status: Acute (2) Dysmetria Status: Acute Old right cerebellar infarct Hypertension Diabetes, type 2 Dyslipidemia Post four-vessel coronary artery bypass graft in 2007 for coronary artery disease. Post back surgery twice by Dr. Monk at [facility] approximately 20 and 25 years ago. These were for disc issues and she has no symptoms. Post right knee surgery 2003 Right cataract repair 2011 Family History Father age 62 of an AK. Mother age 56 of acute asthma Social History Patient never smoked cigarettes. She only rarely has a drink of alcohol. 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 Smoking Status: Never smoker Smokeless Tobacco Use: No Alcohol Use: none Drug Use: none Marital Status: Housing Status: lives with family Occupation Status: retired Allergies Coded Allergies: Codeine (Unverified Allergy, Unknown, ANXIOUS, 10/25/17) Penicillins (Unverified Allergy, Unknown, RASH, 10/25/17) Current Inpatient Medications Current Inpatient Medications Medications (Trade) Dose Ordered Sig/Flor Route Start Time Stop Time Status Last Admin Dose Admin Ioversol (Optiray 320) 111 ml UD PRN IV 10/25/17 10:15 10/29/17 10:14 Heparin Sodium (Porcine) (Heparin Sq 5000 Unit/0.5ml) 5,000 unit Q8H SQ 10/25/17 16:00 11/24/17 15:59 10/25/17 22:00 5,000 UNIT Sodium Chloride 1,000 ml @ 50 mls/hr Q20H IV 10/25/17 15:00 11/24/17 14:59 10/26/17 05:29 50 MLS/HR Acetaminophen (Tylenol Tab) 650 mg Q4H PRN PO 10/25/17 13:30 11/24/17 13:29 Magnesium Hydroxide (Milk Of Magnesia Susp) 30 ml Q12H PRN PO 10/25/17 13:30 11/24/17 13:29 Aspirin (Ecotrin Tab) 325 mg QAM PO 10/26/17 09:00 11/25/17 08:59 Future Hold Glucose (Glucose 40% Gel) 15-30 GRAMS 15 GRAMS... UD PRN PO 10/25/17 13:30 11/24/17 13:29 Glucose (Glucose Chew Tab) 4-8 Tablets 4 Tabl... UD PRN PO 10/25/17 13:30 11/24/17 13:29 Dextrose (Dextrose 50% 50ML Syringe) 25-50ML OF 50% DW IV FOR... UD PRN IV 10/25/17 13:30 11/24/17 13:29 Glucagon (Glucagon Inj) 1 mg UD PRN SQ 10/25/17 13:30 11/24/17 13:29 Miscellaneous Information (Pharmacist Discharge Med Rec Consult) 1 ea UD PRN N/A 10/25/17 13:30 11/24/17 13:29 Atorvastatin Calcium (Lipitor Tab) 40 mg QAM PO 10/26/17 09:00 11/25/17 08:59 Metoclopramide HCl (Reglan Inj) 10 mg Q6H IV 10/25/17 16:00 11/24/17 15:59 10/26/17 03:29 10 MG Insulin Aspart (novoLOG ASPART) SLIDING SCALE If C... ACHS SC 10/25/17 16:15 11/24/17 16:14 10/25/17 17:47 3 UNITS Clopidogrel Bisulfate (plAVix TAB) 75 mg QAM PO 10/26/17 09:00 11/25/17 08:59 UNV Review of Systems Constitutional: No fever, No weakness, No fatigue Eyes: No worsening of vision, No diplopia ENT: No hearing loss, No tinnitus Respiratory: No cough, No shortness of breath Cardiovascular: No chest pain, No palpitations Abdomen: No pain, No nausea Musculoskeletal: No joint pain, No muscle pain Genitourinary - Female: No dysuria, No urinary incontinence Neurologic: No memory loss, No weakness, No numbness/tingling, No vertigo, No balance problems Psychiatric: No depression symptoms, No anxiety Endocrine: No fatigue Hematologic / Lymphatic: No abnormal bleeding/bruising Integumentary: No rash Allergic / Immunologic: No hives Physical Exam Vital Signs (Past 24 Hrs): Date Time Temp Pulse Resp B/P (MAP) Pulse Ox O2 Delivery O2 Flow Rate FiO2 10/26/17 04:00 95 Room Air 10/26/17 03:05 36.9 68 18 173/80 (111) 97 Room Air 10/26/17 00:00 97 Room Air 10/25/17 23:00 37.0 79 17 168/82 (110) 98 Room Air 10/25/17 20:14 36.4 70 18 152/69 (96) 96 Room Air 10/25/17 20:00 98 Room Air 10/25/17 16:50 36.6 73 22 182/74 (110) 98 Room Air 10/25/17 16:34 74 20 168/81 97 Room Air 10/25/17 15:00 72 20 166/81 97 Room Air 10/25/17 14:05 97 Room Air 10/25/17 13:30 64 10/25/17 13:15 76 18 191/83 97 Room Air 10/25/17 10:18 76 16 183/84 97 Room Air 10/25/17 09:59 97 Room Air 10/25/17 09:45 36.9 82 18 210/99 99 Room Air Patient is right-handed. The patient is awake and alert. Speech is normal without aphasia or dysarthria. Mentation and thought processes are intact with orientation and normal fund of knowledge. Mood and affect are normal and appropriate. Appearance and grooming are normal. Long and short-term memory are intact. The discs are sharp with positive venous pulsations. There are no exudates, hemorrhages, or blood vessel changes seen. Pupils are 4mm bilaterally and reactive to light. Extraocular eye muscles are intact without nystagmus. Visual acuity and visual hebert seem normal grossly to confrontation. There are no deficits to sensation of the face bilaterally. Corneal reflexes are positive bilaterally. Facial strength and symmetry is normal bilaterally. Hearing seems intact grossly to voice and finger rub. Palate moves well without asymmetry. There is normal sternocleidomastoid and trapezius strength bilaterally. Tongue is midline with good strength bilaterally. Neck is with full range of motion without discomfort. There are no cervical bruits. There are no cranial or ocular bruits. Heart is without murmur. Cervical, thoracic, and lumbar spine are nontender to palpation. Gait is not tested specifically but stance sitting up in bed is normal. With outstretched arms there is no drift. There are no resting, postural, or action tremors. There is no ataxia with [id number] testing. There is some very mild decreased facility in the left hand compared to the right which is quite normal. Rapid alternating movements are little bit more clumsy with the left hand compared to the right. Rapid alternating movements are little bit more clumsy in the left foot compared to the right foot. There are no abnormal involuntary movements noted. Yeaz-ya-nyzk testing is a little more clumsy on the left than the right which is quite normal Motor strength is 5/5 diffusely in the arms bilaterally including deltoids, biceps, brachioradialis, wrist flexors and extensors, needleworker, and intrinsic hand muscles. Motor strength is 5/5 diffusely in the legs bilaterally including hip flexors, quadriceps, hamstring, gastrocnemius, tibialis anterior, tibialis posterior, and peroneii muscles bilaterally. Toe extensors are normal and there is good bulk in the extensor digitorum brevis muscle bilaterally. The limbs have good tone without rigidity or spasticity, and there is no atrophy noted. Muscle bulk is normal, there is no tenderness, no myotonia noted to percussion, and no fasciculations seen. Sensory examination is intact to pin and touch throughout all four limbs. Reflexes are 1/4 in the biceps, triceps, brachioradialis, quadriceps, and Achilles tendons bilaterally. Toes are downgoing with plantar stimulation bilaterally. Peripheral pulses are present and of normal quality distally in all four limbs. There is no peripheral edema noted. Laboratory Results Past 24 Hours: 10/26/17 06:31 Red Blood Count 4.66, Mean Corpuscular Volume 89.9, Mean Corpuscular Hemoglobin 29.0, Mean Corpuscular Hemoglobin Concent 32.2, Mean Platelet Volume 10.9, Neutrophils (%) (Auto) 52.7, Lymphocytes (%) (Auto) 38.6, Monocytes (%) (Auto) 6.7, Eosinophils (%) (Auto) 1.4, Basophils (%) (Auto) 0.4, Neutrophils # (Auto) 5.98, Lymphocytes # (Auto) 4.38, Monocytes # (Auto) 0.76, Eosinophils # (Auto) 0.16, Basophils # (Auto) 0.04 10/26/17 06:31 Test 10/25/17 10:07 10/25/17 11:15 10/26/17 06:31 10/26/17 06:39 Prothrombin Time 10.2 SECONDS (9.0-12.0) Prothromb Time International Ratio 1.0 (0.9-1.1) Activated Partial Thromboplast Time 23.4 SECONDS (21.0-31.0) Partial Thromboplastin Ratio 0.9 Phosphorus Level 2.0 mg/dl (2.5-4.9) Magnesium Level 2.1 mg/dl (1.8-2.4) Total Bilirubin 0.4 mg/dl (0.2-1) Direct Bilirubin < 0.1 mg/dl (0-0.2) Aspartate Amino Transf (AST/SGOT) 32 U/L (15-37) Alanine Aminotransferase (ALT/SGPT) 41 U/L (12-78) Alkaline Phosphatase 90 U/L (45-117) Troponin I < 0.015 ng/ml (0-0.045) Total Protein 8.2 gm/dl (6.4-8.2) Albumin 4.1 gm/dl (3.4-5.0) Thyroid Stimulating Hormone (TSH) 1.810 uIu/ml (0.300-4.500) Urine Color YELLOW Urine Appearance CLEAR (CLEAR) Urine pH 5.0 (4.5-7.5) Urine Specific [place] 1.013 (1.000-1.030) Urine Protein NEG (NEG) Urine Glucose (UA) NEG (NEG) Urine Ketones NEG (NEG) Urine Occult Blood NEG (NEG) Urine Nitrite NEG (NEG) Urine Bilirubin NEG (NEG) Urine Urobilinogen NEG (NEG) Urine Leukocyte Esterase SMALL (NEG) Urine WBC (Auto) 1-5 /hpf (0-5) Urine RBC (Auto) 0-4 /hpf (0-4) Urine Hyaline Casts (Auto) 1-5 /lpf (0-5) Urine Epithelial Cells (Auto) >30 /lpf (0-5) Urine Bacteria (Auto) NEG (NEG) Urine Yeast (Auto) (NONE PRSENT) White Blood Count 11.34 K/uL (4.8-10.8) Red Blood Count 4.66 M/uL (4.2-5.4) Hemoglobin 13.5 g/dL (12.0-16.0) Hematocrit 41.9 % (37-47) Mean Corpuscular Volume 89.9 fL (80-100) Mean Corpuscular Hemoglobin 29.0 pg (25-34) Mean Corpuscular Hemoglobin Concent 32.2 g/dl (32-36) Platelet Count 320 K/uL (130-400) Mean Platelet Volume 10.9 fL (7.4-10.4) Neutrophils (%) (Auto) 52.7 % Lymphocytes (%) (Auto) 38.6 % Monocytes (%) (Auto) 6.7 % Eosinophils (%) (Auto) 1.4 % Basophils (%) (Auto) 0.4 % Neutrophils # (Auto) 5.98 K/uL (1.4-6.5) Lymphocytes # (Auto) 4.38 K/uL (1.2-3.4) Monocytes # (Auto) 0.76 K/uL (0.11-0.59) Eosinophils # (Auto) 0.16 K/uL (0-0.5) Basophils # (Auto) 0.04 K/uL (0-0.2) RDW Standard Deviation 43.5 fL (36.4-46.3) RDW Coefficient of Variation 13.4 % (11.5-14.5) Immature Granulocyte % (Auto) 0.2 % Immature Granulocyte # (Auto) 0.02 K/uL (0.00-0.02) Anion Gap 8.0 mmol/L (3-11) Est Creatinine Clear Calc Drug Dose 59.4 ml/min Estimated GFR () 79.9 Estimated GFR (Non- 69.0 BUN/Creatinine Ratio 17.9 (10-20) Calcium Level 8.6 mg/dl (8.5-10.1) Triglycerides Level 234 mg/dl (0-150) Cholesterol Level 209 mg/dl (0-200) HDL Cholesterol 35 mg/dl LDL Cholesterol, Calculated 127 mg/dl VLDL Cholesterol, Calculated 47 mg/dl Cholesterol/HDL Ratio 6.0 Bedside Glucose 139 mg/dl (70-90) Imaging CT ANGIOGRAPHY OF THE NECK WITH CONTRAST CLINICAL HISTORY: Weakness COMPARISON STUDY: No previous studies for comparison. Technique: CT angiography of the carotid and vertebral arteries was obtained using Optiray 320 IV and 3D reconstruction on an independent workstation. NASCET criteria was utilized. A dose lowering technique was utilized adhering to the principles of ALARA. CT DOSE: 1064.33 mGy.cm Findings: There is moderate plaque within the bilateral distal common carotid and internal carotid arteries with mild stenosis of the proximal bilateral internal carotid arteries bilaterally. 40% narrowing of the proximal right internal carotid artery is noted with 20% narrowing of the proximal left internal carotid artery. The left vertebral artery is dominant and patent. The right vertebral artery is not opacified within its proximal to mid aspect. There is distal reconstitution. The right vertebral artery is diminutive. There is no cervical lymphadenopathy. Lung apices are clear. Median sternotomy wires are noted. IMPRESSION: 1. 40% stenosis of the proximal right internal carotid artery and 20% stenosis of the proximal left internal carotid artery. Moderate atherosclerotic plaque within the bilateral common carotid and internal carotid arteries. 2. No contrast within the proximal to mid right vertebral artery with distal reconstitution. Dominant, patent left vertebral artery. Electronically signed by: Stewart Anne M.D. 10/25/2017 12:18 PM ANGIOGRAPHY HEAD COMBO CLINICAL HISTORY: Weakness. Blurry vision. COMPARISON STUDY: MRI of the brain March 27, 2009. TECHNIQUE: Unenhanced and arterial phase imaging of the head was performed. Injection of 118 cc of Optiray 320 IV was uneventful. Sagittal and coronal reconstructions were viewed as well as maximal intensity projections on an independent 3-D workstation. FINDINGS: No acute intracranial hemorrhage, midline shift or mass effect is present. Ventricular system is normal. Basilar cisterns are patent. There are no extra-axial collections. 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 Mild white matter hypodensity suggests small vessel disease. There are no findings to suggest acute dural sinus thrombosis or acute territorial infarct. Visualized portions of the sinuses and mastoid air cells are clear. There are no significant calvarial abnormality. The bilateral M1, M2, A1 and A2 segments are patent. There is moderate to severe narrowing of the right supraclinoid ICA. There is moderate plaque within the bilateral cavernous carotids. There is persistence of the left posterior cerebral artery. Note is made of apparent abrupt cut off of the right posterior cerebral artery shown image 75 of 215. No intracranial aneurysm is identified. IMPRESSION: 1. No acute intracranial hemorrhage or mass effect. 2. Apparent abrupt cut off of the proximal middle right posterior cerebral artery. 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 3. Moderate to severe stenosis of the supraclinoid right ICA. Electronically signed by: Stewart Anne M.D. 10/25/2017 12:10 PM Impression 1. Acute onset nonspecific blurry vision and dizziness (which is a combination of lightheadedness and nonspecific wooziness without true vertigo) October 24 of uncertain etiology. Her symptoms were on 81 milligram aspirin tablet daily. I am not convinced this patient had a stroke despite the CTA findings. Patient does have some dysmetria and clumsiness of the left hand and foot compared to the right although this may not be new. Otherwise, her neurologic examination is unremarkable with no other focal neurologic findings, meningeal signs, or encephalopathy. Patient had significant hypertension on admission and this may have triggered all of her new symptomatology. Patient also initiated metformin recently and has been having some side effects. It is possible that this symptomatology could be related to metformin side effect. She is markedly improved this morning and has virtually no abnormal symptoms. 2. Hypertension, significantly elevated on admission, now much improved since hospitalized. 3. Old right cerebellar hemispheric CVA, unchanged. 4. Significant vascular stenoses seen on CTA of the head and neck including cutoff of the right posterior cerebral artery and stenosis in the internal carotid arteries bilaterally, as well as flow issues in the vertebral arteries bilaterally. Plan 1. MRI of the brain without contrast would be ideal to see if she has had a new stroke. However, the patient is markedly claustrophobic. 2. First, obtained CT scan of the head without contrast to see if an actual stroke is present, in light of the right DENTAL EQUIPMENT REPAIRER vessel cutoff finding on CT angiography We can then decide if we need an MRI of the brain or not with sedation. 3. Switch aspirin to clopidogrel 75 milligrams daily. 4. Control blood pressure as you are doing. 5. Awaiting echocardiogram results 6. Consider discontinuing metformin using another medication for her hyperglycemia. I have discussed this case with the patient, Dr. Funk, radiology and nursing staff, including differential diagnosis and treatment options. Overall I spent a total of 60 minutes on this case including the above and records review.
[2017-10-26] MEDS: ATORVASTATIN 40 MG TAB PO SCH (08:36)
[2017-10-26] MEDS: INSULIN ASPART 100 UNITS/ML 3 ML PEN SC SCH ×4 (08:43→20:33)
[2017-10-26] MEDS: HEPARIN SOD 5000 UNIT/0.5 ML CARP SQ SCH ×3 (08:43→21:46)
[2017-10-26] MEDS ORDERED: ASPIRIN 325 MG ECTAB PO SCH (09:00)
--- NOTE | 2017-10-26 09:02 | DIAGNOSTIC IMAGING REPORT ---
HEAD CT NONCONTRAST CT DOSE: 537.48 mGy.cm HISTORY: Blurry vision. 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 Automated exposure control was utilized for this study. A dose lowering technique was utilized adhering to the principles of ALARA. Comparison: Head CTA 10/25/2017. Findings: The paranasal sinuses and mastoid air cells are clear. The calvarium and skull base are intact. Old right cerebellar infarct is again noted. Mild atrophy and microvascular ischemic changes are again noted. No mass, hematoma, midline shift, acute infarct. Specifically, there is no evidence for an acute right TEXTILE PIN WORKER territory infarct. Impression: No significant change compared to the prior study. No acute intracranial abnormality. Old right cerebellar infarct is again noted. Electronically signed by: Richar Joy M.D. 10/26/2017 9:01 AM Dictated Date/Time: 10/26/2017 8:59 AM
[2017-10-26] MEDS: CLOPIDOGREL BISULFATE 75 MG TAB PO SCH (09:30)
--- NOTE | 2017-10-26 11:05 | ECHOCARDIOGRAM REPORT ---
*NOTICE TO RECEIVING [employer] This information is strictly Confidential and protected under [place] law. [place] law prohibits you from making any further disclosure of this information unless further disclosure is expressly permitted by the written consent of the person to whom it pertains or is authorized by law. A general authorization for the release of medical or other information is not sufficient for this purpose. Hospital accepts no responsibility if the information is made available to any other person, INCLUDING THE PATIENT. 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 Normal LV size, mild concentric LVH. * 2. Normal LV systolic function. LVEF 60-65%. No regional wall motion abnormalities. * 3. Normal RV size and function. * 4. Mild to moderate mitral regurgitation. * 5. Technically difficult saline contrast study - possible small PFO. * 6. No prior studies for comparison. Procedure Details * A complete two-dimensional transthoracic echocardiogram was performed (2D, M-mode, Doppler and color flow Doppler). * A saline contrast injection was performed to assess for cardiac shunting. * The injection was performed through an intravenous line in the left arm. * The attending nurse who injected the saline contrast was CARMELA METZGER, KERRI. * A total of 20 cc of agitated saline was given. Left Ventricle * The left ventricle is grossly normal size. * There is mild concentric left ventricular hypertrophy. * Ejection Fraction = 60-65%. Right Ventricle * The right ventricle is grossly normal size. * The right ventricular systolic function is normal as assessed by tricuspid annular plane systolic excursion (TAPSE) (normal >1.5 cm). Atria * The left atrial size is normal. * Right atrial size is normal. * Technically difficult saline contrast study - possible small PFO Mitral Valve * The mitral valve leaflets appear thickened, but open well. * There is no mitral valve stenosis. * There is mild to moderate mitral regurgitation. Tricuspid Valve * The tricuspid valve is not well visualized. * Significant tricuspid regurgitation is absent. Aortic Valve * The aortic valve opens well. * The aortic valve is trileaflet. * No hemodynamically significant valvular aortic stenosis. * There is no significant aortic regurgitation. Pulmonic Valve * The pulmonary valve is inadequately visualized, but the Doppler data is adequate for interpretation. * Pulmonic stenosis is absent. * Trace pulmonic valvular regurgitation. Great Vessels * The aortic root and proximal ascending aorta are normal sized. Pericardium/Pleural * There is no pericardial effusion. Great Vessels * Normal inferior vena cava size and collapsability with sniff indicates a normal right atrial pressure of 3 mmHg MMode 2D Measurements and Calculations IVSd 1.1 cm IVSs 1.7 cm LVIDd 4.5 cm LVIDs 3.0 cm LVPWd 1.2 cm LVPWs 1.2 cm IVS/LVPW 0.95 FS 32.9 % EDV(Teich) 92.2 ml ESV(Teich) 35.4 ml EF(Teich) 61.6 % EDV(cubed) 90.8 ml ESV(cubed) 27.4 ml EF(cubed) 69.8 % % IVS thick 51.7 % % LVPW thick 3.0 % LV mass(C)d 186.4 grams LV mass(C)dI 100.8 grams/m\S\2 LV mass(C)s 151.5 grams LV mass(C)sI 81.9 grams/m\S\2 SV(Teich) 56.7 ml SI(Teich) 30.7 ml/m\S\2 SV(cubed) 63.4 ml SI(cubed) 34.3 ml/m\S\2 Ao root diam 2.7 cm Ao root area 5.9 cm\S\2 ACS 1.8 cm LA dimension 4.0 cm LA/Ao 1.5 LVOT diam 2.0 cm LVOT area 3.0 cm\S\2 EDV(sp4-el) 111.0 ml ESV(sp4-el) 59.0 ml EF(sp4-el) 46.8 % EDV(sp2-el) 104.0 ml ESV(sp2-el) 56.0 ml EF(sp2-el) 46.2 % SV(sp4-el) 52.0 ml SI(sp4-el) 28.1 ml/m\S\2 SV(sp2-el) 48.0 ml SI(sp2-el) 26.0 ml/m\S\2 Doppler Measurements and Calculations MV E max yissel 128.3 cm/sec MV A max yissel 154.2 cm/sec MV E/A 0.83 MV P1/2t max yissel 132.7 cm/sec MV P1/2t 91.0 msec MVA(P1/2t) 2.4 cm\S\2 MV dec slope 427.1 cm/sec\S\2 MV dec time 0.29 sec MR max yissel 577.0 cm/sec MR max PG 133.2 mmHg PA V2 max 119.7 cm/sec PA max PG 5.7 mmHg
--- NOTE | 2017-10-26 22:51 | Family Medicine Progress Note ---
Progress Note Date of Service Oct 26, 2017. Subjective Pt evaluation today including: conversation w/ patient, physical exam, chart review, lab review, review of studies Pain: No pain reported Voiding: no voiding problems, no incontinence Patient is resting comfortably in bed this morning with no acute complaints overnight. She currently denies any blurry vision, headaches, dizziness, vision changes, shortness of breath, or any other acute complaints. Constitutional: No fever, No chills, No fatigue Eyes: No worsening of vision, No diplopia Respiratory: No cough, No sputum, No wheezing, No shortness of breath Cardiovascular: No chest pain, No palpitations Abdomen: No pain, No nausea, No vomiting, No diarrhea, No constipation Neurologic: No weakness, No numbness/tingling, No vertigo, No balance problems Medications Current Inpatient Medications Medications (Trade) Dose Ordered Sig/Flor Route Start Time Stop Time Status Last Admin Dose Admin Ioversol (Optiray 320) 111 ml UD PRN IV 10/25/17 10:15 10/29/17 10:14 Heparin Sodium (Porcine) (Heparin Sq 5000 Unit/0.5ml) 5,000 unit Q8H SQ 10/25/17 16:00 11/24/17 15:59 10/26/17 21:46 5,000 UNIT Acetaminophen (Tylenol Tab) 650 mg Q4H PRN PO 10/25/17 13:30 11/24/17 13:29 Magnesium Hydroxide (Milk Of Magnesia Susp) 30 ml Q12H PRN PO 10/25/17 13:30 11/24/17 13:29 Aspirin (Ecotrin Tab) 325 mg QAM PO 10/26/17 09:00 11/25/17 08:59 Future Hold Glucose (Glucose 40% Gel) 15-30 GRAMS 15 GRAMS... UD PRN PO 10/25/17 13:30 11/24/17 13:29 Glucose (Glucose Chew Tab) 4-8 Tablets 4 Tabl... UD PRN PO 10/25/17 13:30 11/24/17 13:29 Dextrose (Dextrose 50% 50ML Syringe) 25-50ML OF 50% DW IV FOR... UD PRN IV 10/25/17 13:30 11/24/17 13:29 Glucagon (Glucagon Inj) 1 mg UD PRN SQ 10/25/17 13:30 11/24/17 13:29 Miscellaneous Information (Pharmacist Discharge Med Rec Consult) 1 ea UD PRN N/A 10/25/17 13:30 11/24/17 13:29 Atorvastatin Calcium (Lipitor Tab) 40 mg QAM PO 10/26/17 09:00 11/25/17 08:59 10/26/17 08:36 40 MG Metoclopramide HCl (Reglan Inj) 10 mg Q6H IV 10/25/17 16:00 11/24/17 15:59 10/26/17 21:47 10 MG Insulin Aspart (novoLOG ASPART) SLIDING SCALE If C... ACHS SC 10/25/17 16:15 11/24/17 16:14 10/26/17 17:09 2 UNITS Clopidogrel Bisulfate (plAVix TAB) 75 mg QAM PO 10/26/17 09:00 11/25/17 08:59 10/26/17 09:30 75 MG Objective Vital Signs Date Time Temp Pulse Resp B/P (MAP) Pulse Ox O2 Delivery O2 Flow Rate FiO2 10/26/17 20:00 96 Room Air 10/26/17 19:58 37.0 80 20 165/83 (110) 97 Room Air 10/26/17 17:11 36.5 81 16 98/63 (75) 96 Room Air 10/26/17 16:00 Room Air 10/26/17 12:00 Room Air 10/26/17 11:31 36.4 84 20 154/82 (106) 93 Room Air 10/26/17 08:39 36.3 92 20 172/96 (121) 94 Room Air 10/26/17 08:00 Room Air 10/26/17 04:00 95 Room Air 10/26/17 03:05 36.9 68 18 173/80 (111) 97 Room Air 10/26/17 00:00 97 Room Air 10/25/17 23:00 37.0 79 17 168/82 (110) 98 Room Air Physical Exam General Appearance: WD/WN, no apparent distress Eyes: normal inspection, PERRL, EOMI, sclerae normal Neck: supple, no carotid bruits Respiratory/Chest: chest non-tender, lungs clear, normal breath sounds Cardiovascular: regular rate, rhythm, no edema, no gallop Abdomen: normal bowel sounds, non tender, soft Neurologic/Psychiatric: decatizer II-XII nml as tested, no motor/sensory deficits, alert, normal mood/affect, oriented x 3 Laboratory Results Results Past 24 Hours Test 10/26/17 06:31 10/26/17 06:39 10/26/17 11:30 10/26/17 16:07 Range/Units White Blood Count 11.34 4.8-10.8 K/uL Red Blood Count 4.66 4.2-5.4 M/uL Hemoglobin 13.5 12.0-16.0 g/dL Hematocrit 41.9 37-47 % Mean Corpuscular Volume 89.9 80-100 fL Mean Corpuscular Hemoglobin 29.0 25-34 pg Mean Corpuscular Hemoglobin Concent 32.2 32-36 g/dl Platelet Count 320 130-400 K/uL Mean Platelet Volume 10.9 7.4-10.4 fL Neutrophils (%) (Auto) 52.7 % Lymphocytes (%) (Auto) 38.6 % Monocytes (%) (Auto) 6.7 % Eosinophils (%) (Auto) 1.4 % Basophils (%) (Auto) 0.4 % Neutrophils # (Auto) 5.98 1.4-6.5 K/uL Lymphocytes # (Auto) 4.38 1.2-3.4 K/uL Monocytes # (Auto) 0.76 0.11-0.59 K/uL Eosinophils # (Auto) 0.16 0-0.5 K/uL Basophils # (Auto) 0.04 0-0.2 K/uL RDW Standard Deviation 43.5 36.4-46.3 fL RDW Coefficient of Variation 13.4 11.5-14.5 % Immature Granulocyte % (Auto) 0.2 % Immature Granulocyte # (Auto) 0.02 0.00-0.02 K/uL Sodium Level 136 136-145 mmol/L Potassium Level 3.9 3.5-5.1 mmol/L Chloride Level 105 98-107 mmol/L Carbon Dioxide Level 23 21-32 mmol/L Anion Gap 8.0 3-11 mmol/L Blood Urea Nitrogen 15 7-18 mg/dl Creatinine 0.83 0.60-1.20 mg/dl Est Creatinine Clear Calc Drug Dose 59.4 ml/min Estimated GFR () 79.9 Estimated GFR (Non- 69.0 BUN/Creatinine Ratio 17.9 10-20 Random Glucose 147 70-99 mg/dl Calcium Level 8.6 8.5-10.1 mg/dl Triglycerides Level 234 0-150 mg/dl Cholesterol Level 209 0-200 mg/dl HDL Cholesterol 35 mg/dl LDL Cholesterol, Calculated 127 mg/dl VLDL Cholesterol, Calculated 47 mg/dl Cholesterol/HDL Ratio 6.0 Bedside Glucose 139 149 114 70-90 mg/dl Test 10/26/17 20:06 Range/Units Bedside Glucose 135 70-90 mg/dl Assessment and Plan Patient is a 77-year-old female with a past medical history of diabetes, CABG ( 2008), hyperlipidemia, and previous cerebellar stroke that presents with one- day history of dizziness and blurry vision 1) Acute CVA --> Possible TIA - Patient symptoms appears to have improved with no residual neurological defects - CTA Head (10/25) reveals Right ROAD CONSULTANT Infarct (Abrupt cutoff of proximal middle right ROAD CONSULTANT) with no hemorrhage or mass effect - Repeat CT on 10/26 head reveals no significant changes from previous study and old cerebellar infarct - ECHO: Mild to moderate mitral regurgitation, EF 60-65%, Technically difficult study with possible PFO - Neurology Consult: Not convinced above imaging is suggestive of stroke - Request repeat CT Head, Plavix, and continue to monitor blood pressure - CTA Neck shows 40% stenosis of R ICA and 20% stenosis of Proximal L ICA - CXR no acute cardiopulmonary abnormalities - Symptoms significantly beyond TPA criteria timeline - 1 point on NIH stroke scale for left arm pronator drift (ED doctor did appreciate left arm dysarthria for possible second point) - Admit to telemetry - Plavix 75mg Daily (Was previously on home dose of Aspirin 81mg daily) - Atorvastatin 40mg Daily --> Possible that patient has had difficulty tolerating statins in the past --> Says that has been evaluated by Khoi Alarcon -- > Will discuss with him tomorrow other options - Lipid Panel --> Elevated triglycerides and total cholesterol - HbA1c --> Pending - Diabetic Diet - PT/O--> Patient walking in hallways with walker, recommend rehab and patient stated she would prefer to do exercises at home - Hold home Estrogen medication 2) Diabetes - Sugars have been well controlled in the hospital with insulin and diabetic diet - Insulin sliding scale - Patiently currently on metformin at home --> Appears to not have tolerated it well and will require alternative medication on discharge - She states that her last HbA1c was greater than 7 - HbA1c pending - BSG checks 3) Hypertension - Permissive HTN due to concern over CVA - If blood pressure remains elevated will require medication on discharge for blood pressure - Patient states she has had an adverse reaction to metoprolol in the past 4) DVT - Heparin 5,000 units q8h 5) Code Status - Full Resuscitation Resident Tracking Resident Involvement: Resident Care Provided Care Provided: Adult Hospital Medicine
[2017-10-27] VITALS: O2SAT 97
[2017-10-27 03:45] VITALS: BP 159/75; PULSE 70; TEMP 36.6; O2SAT 97
[2017-10-27 04:00] VITALS: O2SAT 95
[2017-10-27] MEDS: METOCLOPRAMIDE HCL INJ 5 MG/ML 2 ML VIAL IV SCH ×2 (05:03→10:00)
[2017-10-27 07:01] LABS: BASO % 0.5 %; BASO ABS # 0.05 K/uL (0-0.2); EOS % 2.5 %; EOS ABS # 0.27 K/uL (0-0.5); HEMATOCRIT 40.6 % (37-47); HEMOGLOBIN 13.4 g/dL (12.0-16.0); IG# 0.03 K/uL (0.00-0.02); LYMPH % 36.7 %; LYMPH ABS # 3.92 K/uL (1.2-3.4); MEAN CELL VOLUME 89.6 fL (80-100); MEAN CORPUSCULAR HEMOGLOBIN 29.6 pg (25-34); MEAN PLATELET VOLUME 10.5 fL (7.4-10.4); MONO % 8.2 %; MONO ABS # 0.88 K/uL (0.11-0.59); NEUT % 51.8 %; NEUT ABS # 5.52 K/uL (1.4-6.5); PLATELET COUNT 290 K/uL (130-400); RED CELL DISTRIBUTION WIDTH CV 13.4 % (11.5-14.5); RED CELL DISTRIBUTION WIDTH SD 44.2 fL (36.4-46.3); WHITE BLOOD COUNT 10.67 K/uL (4.8-10.8)
[2017-10-27 07:25] LABS: CREATININE 0.83 mg/dl (0.60-1.20)
[2017-10-27 07:26] LABS: CALCIUM 8.9 mg/dl (8.5-10.1)
[2017-10-27 07:44] VITALS: BP_SYST 170; BP_DIAS 83; BP_DIAS 94; PULSE 88; TEMP 36.5; O2SAT 95
[2017-10-27 08:02] LABS: HEMOGLOBIN A1C 7.5 % (4.5-5.6)
[2017-10-27] MEDS: ATORVASTATIN 40 MG TAB PO SCH (08:05)
[2017-10-27] MEDS: CLOPIDOGREL BISULFATE 75 MG TAB PO SCH (08:05)
[2017-10-27] MEDS: INSULIN ASPART 100 UNITS/ML 3 ML PEN SC SCH ×2 (08:07→12:16)
[2017-10-27] MEDS: HEPARIN SOD 5000 UNIT/0.5 ML CARP SQ SCH (08:08)
[2017-10-27 12:07] VITALS: BP 185/95; PULSE 82; TEMP 36.6; O2SAT 95
[2017-10-27 13:00] VITALS: Ht 160 cm; Wt 79.5 kg
[2017-10-27] MEDS ORDERED: LPT40 PO (13:05)
[2017-10-27] MEDS ORDERED: PLV75 PO (13:05)
--- NOTE | 2017-10-27 13:16 | Discharge Instructions ---
Discharge Instructions Date of Service Oct 27, 2017. Admission Reason for Admission: Acute Cerebral Infarction Discharge Discharge Diagnosis / Problem: Transient Ischemic Attack Discharge Goals Goal(s): Improve function, Improve disease control, Therapeutic intervention Activity Recommendations Activity Limitations: as noted below Lifting Limitations: gradually increase as tolerated Exercise/Sports Limitations: gradually increase as tolerated Shower/Bathe: no limitations . Instructions / Follow-Up Instructions / Follow-Up You were treated in the hospital for a transient ischemic attack, which is a short-term lack of blood flow to the brain. Due to your previous history of stroke as well as other medical conditions we have added a few medications to her daily regimen. Over the course of your time in the hospital you improved and your neurological symptoms appear to have mostly resolved. You were started on Plavix and Lipitor to prevent future risk of heart attack and stroke. It is also recommended that you continue your metformin as prescribed to help with your blood sugar level. Diabetes: As we discussed during her time in the hospital is very important to control your blood sugar level by both medications and diet at this time. To help control your blood sugar level, it is important to avoid foods that are common culprits of high blood sugar such as breads, pastas, or any complex carbohydrates. The best way to tell if the food is causing your blood sugar to be elevated, he is to check a blood sugar level an hour and a half to 2 hours after your meal. If your blood sugar level is higher then 150, then that level of sugar is causing damage to your blood vessels. We will provide you with a glucometer in order to check your blood sugar levels regularly. At this time is important to continue the metformin medication due to your high blood sugars , but if her sugars do not improve with diet control it would be plausible to at some point discontinue the metformin. It is also important to continue your exercise regimen and that you were previously participating in. Please follow-up with your primary care physician in the next 2-3 days to reevaluate your current condition. If you present with any concerning symptoms including headache, dizziness, blurriness of vision, chest pain, shortness of breath, fevers, chills, or any other acute concerns please return to the hospital or be seen by physician for immediate evaluation. MEDICATIONS: 1) Stop taking aspirin as previously prescribed 2) Plavix 75mg - Take 1 tablet every morning 3) Lipitor 40mg - Take 1 tablet every morning 4) Stop taking your estrogen medication, as this increases the risk of clotting 5) Continue taking Metformin as prescribed by your doctor Current Hospital Diet Patient's current hospital diet: Diabetes Type 2 Diet Discharge Diet Recommended Diet: AHA Diet (Heart Healthy), Diabetes Type 2 Diet Pending Studies Studies pending at discharge: no Laboratory Results Hemoglobin A1c Test 10/26/17 06:31 Range/Units Estimated Average Glucose 169 mg/dl Hemoglobin A1c 7.5 H 4.5-5.6 % Lipid Panel Test 10/26/17 06:31 Range/Units Triglycerides Level 234 H 0-150 mg/dl Cholesterol Level 209 H 0-200 mg/dl HDL Cholesterol 35 mg/dl Cholesterol/HDL Ratio 6.0 LDL Cholesterol, Calculated 127 mg/dl Medical Emergencies . Who to Call and When: Medical Emergencies: If at any time you feel your situation is an emergency, please call 911 immediately. . Non-Emergent Contact Non-Emergency issues call your: Primary Care Provider . . "Provider Documentation" section prepared by Francisco Javier Funk. . VTE Core Measure Inpt VTE Proph given/why not?: Unfractionated heparin SQ Resident Tracking Resident Involvement: Resident Care Provided Care Provided: Adult Hospital Medicine
[2017-10-27 13:18] VITALS: BP 185/95; PULSE 82; TEMP 36.6; O2SAT 95
--- NOTE | 2017-10-27 15:06 | Pharmacy Progress Note ---
Pharmacist Stroke Counseling Date of Service Oct 27, 2017. Scope Pharmacy has been consulted to provide medication discharge counseling for this patient admitted with transient ischemic attack as per the Pharmacist Discharge Counseling for Stroke Patients Protocol. Medications on Discharge New Medications: Atorvastatin (Atorvastatin Calcium) 40 Mg Tab 40 MG PO QAM for 30 Days, #30 TAB Clopidogrel Bisulfate (Clopidogrel) 75 Mg Tab 75 MG PO QAM for 30 Days, #30 TAB Continued Medications: Cholecalciferol (Vitamin D3) 1,000 Unit Tab 1000 INTER.UNIT PO DAILY for 90 Days, TAB 3 Refills Cyanocobalamin (Vitamin B-12) 500 Mcg Tab 500 MCG PO DAILY, TAB Fish Oil (Lorimor-3) 1 Ea Cap 1 CAP PO, CAP Ginseng (Ginseng Extract) 100 Mg Cap 100 MG PO DAILY Glucosamine Sulfate (Glucosamine) 1,000 Mg Tab 1000 MG PO DAILY, TAB Metformin Hcl (Glucophage) 500 Mg Tab 500 MG PO DAILY, TAB Discontinued Medications: Estrog Conj/Medryoxyprog Acet (Prempro 0.3MG/1.5MG) Tab 1 TAB PO DAILY, TAB Action The above medications, specifically ones for stroke treatment/prophylaxis, have been reviewed in detail with the patient and significant other prior to discharge. This includes indication, common adverse reactions, drug interactions, and medication administration. Medication counseling has been employed using the teach-back method to ensure understanding. Outcome The patient and significant other have demonstrated understanding of the medications. Please note, they are aware that the pharmacist will call them within 72 hours post-discharge to confirm that the appropriate medications are being taken and answer any further medication related questions the patient might have at that time. Contact information Individual to be contacted: Kayli (patient) Phone number: . OK per Kayli to leave message if she does not answer (screens phone calls). Best time to call: 2-4pm Additional comments: - Kayli demonstrated understanding of content discussed. - She asked multiple questions, most notably whether doses of clopidogrel and atorvastatin were "high" as she is prone to adverse reactions. Discussed possible adverse reactions at length - Kayli denies using any OTC medications for dyspepsia - not likely to have DDI w clopidogrel/omeprazole Thank you for allowing pharmacy to be involved in the care of this patient. Please call [phone] or [phone] with any additional questions
--- NOTE | 2017-10-27 15:41 | Discharge Summary ---
Discharge Summary Date of Service Oct 27, 2017. (Francisco Javier Funk MD) Discharge Summary Admission Date: Oct 25, 2017 at 13:42 Discharge Date: Oct 27, 2017 Discharge Disposition: Home Principal Diagnosis: Transient ischemic attack Problems/Secondary Diagnoses: Diabetes, hypertension, hyperlipidemia (Francisco Javier Funk MD) Medication Reconciliation New Medications: Atorvastatin (Atorvastatin Calcium) 40 Mg Tab 40 MG PO QAM for 30 Days, #30 TAB Clopidogrel Bisulfate (Clopidogrel) 75 Mg Tab 75 MG PO QAM for 30 Days, #30 TAB Continued Medications: Cholecalciferol (Vitamin D3) 1,000 Unit Tab 1000 INTER.UNIT PO DAILY for 90 Days, TAB 3 Refills Cyanocobalamin (Vitamin B-12) 500 Mcg Tab 500 MCG PO DAILY, TAB Fish Oil (Mcallen-3) 1 Ea Cap 1 CAP PO, CAP Ginseng (Ginseng Extract) 100 Mg Cap 100 MG PO DAILY Glucosamine Sulfate (Glucosamine) 1,000 Mg Tab 1000 MG PO DAILY, TAB Metformin Hcl (Glucophage) 500 Mg Tab 500 MG PO DAILY, TAB Discontinued Medications: Estrog Conj/Medryoxyprog Acet (Prempro 0.3MG/1.5MG) Tab 1 TAB PO DAILY, TAB Discharge Exam Review of Systems: Constitutional: No fever, No chills, No fatigue Respiratory: No cough, No shortness of breath, No problem reported Cardiovascular: No chest pain Abdomen: No pain, No nausea, No vomiting, No diarrhea, No constipation Musculoskeletal: No joint pain, No calf pain Genitourinary - Female: No dysuria Genitourinary - Male: No hematuria, No problem reported Endocrine: No fatigue, No excessive thirst, No excessive urination Physical Exam: General Appearance: WD/WN, no apparent distress Eyes: normal inspection, sclerae normal Neck: supple, no carotid bruits Respiratory/Chest: chest non-tender, lungs clear, normal breath sounds, no respiratory distress, no accessory muscle use Cardiovascular: regular rate, rhythm, no edema, no gallop, + diastolic murmur Abdomen / GI: normal bowel sounds, non tender, soft Extremities: no pedal edema, non-tender Neurologic/Psychiatric: production zone leader II-XII nml as tested, no motor/sensory deficits , alert, normal mood/affect, normal reflexes, oriented x 3, + pertinent finding (Mild dysarthria of the left hand, good heel to ruffin, strength 5/5 in upper and lower extremity, no pronator drift) Skin: no rash (Francisco Javier Funk MD) Hospital Course Patient is a 77-year-old female with a past medical history of diabetes, CABG in 2008, hypertension, hyperlipidemia, that presented with one-day history of dizziness and blurry vision. On CTA of the neck the patient was found to have a questionable right PARTNER MARKETING MANAGER infarct, read by the radiologist as an abrupt cutoff of the proximal right PARTNER MARKETING MANAGER with no hemorrhage or mass effect. In the emergency department the patient was found to have some mild left arm pronator drift in addition to some left arm dysarthria. No signs of any cranial nerve abnormalities, facial droop, slurred speech, altered mental status, or other signs of musculoskeletal weakness. Patient was started on aspirin as well as a statin and placed on stroke protocol. The patient had been having symptoms for over 12 hours and did not be TPA criteria. At the time of admission the patient scored a 1 on the NIH stroke scale for her left arm pronator drift, and was admitted to telemetry. The patient states that she had been having a headache for the 2 days prior since starting metformin for her elevated HbA1c that was greater than 7. After further evaluation the patient was found to have an HbA1c of 7.5 during her last primary care visit. Significant counseling was made to the patient to understand her glucose levels and dietary needs. Especially considering her previous history of coronary artery bypass as well as her hyperlipidemia is essential for her to maintain proper blood glucose levels. The next morning neurology recommended that the patient have a repeat CT head scan to further evaluate previous findings. On the initial CT scan it did show a questionable cerebellar infarct that may have been old. That had not changed and there were no other acute findings on repeat head CT. The patient also was allowed to have permissive hypertension due to her questionable stroke. An echocardiogram by cardiology revealed a possible small PFO due to a technically adequate study, in addition to mitral regurgitation. During her admission her blood pressure was consistently above 150 systolic. It is recommended on follow -up that she be started on antihypertensives. On discharge she was placed on Plavix in place of aspirin, Lipitor for her elevated cholesterol, we continued her metformin for her diabetes, and discontinued her estrogen medication. Total Time Spent: Greater than 30 minutes This includes examination of the patient, discharge planning, medication reconciliation, and communication with other providers. (Francisco Javier Funk MD) Resident Physician Supervision Note: I interviewed and examined the patient. Discussed with Dr. Funk and agree with findings and plan as documented in the note. Any exceptions or clarifications are listed here: None Documented By: Jt Perdomo feeling better, wants to go home, extensive discussion on lifestyle change, on metabolic risks for vascular disease. she expressed good understanding vitlas noted nad breathing unlabored no pallor or icterus TIA vs stroke - now stable, med management as above. risk factor modification uncontrolled HTN -within range for autoregulation - ongoing close outpt f/u and then increase meds if ongoing elevations DM2 -just started on metformin by PCP -extensive discussions on DM2 and microvascular ischemia, as well as critical role of lifestyle in both perpetuating microvascular ischemia as well as in worsening vs regressing insulin resistance stable for home Total Time Spent: Greater than 30 minutes (Jt Perdomo, D.O.) Discharge Instructions Please refer to the electronic Patient Visit Report (Discharge Instructions) for additional information. (Francisco Javier Funk MD) Additional Copies To Roverto Lang M.D. Resident Tracking Resident Involvement: Resident Care Provided Care Provided: Adult Hospital Medicine (Francisco Javier Funk MD)
[2017-10-30] MEDS ORDERED: CHOLTAB11 PO (14:56)
[2017-10-30] MEDS ORDERED: CYAN10005 PO (14:56)
[2017-10-30] MEDS ORDERED: GLUC500T35 PO (14:56)
--- NOTE | 2017-10-30 14:58 | Pharmacy Progress Note ---
Pharmacist Post D/C Phone Note Date of phone call: Oct 30, 2017. Individual with whom pharmacist spoke to: Kayli (patient) The following questions were reviewed during the phone call with responses listed below each: Can you tell me the medications that you are currently taking as well as when and how you take each medication? - Medications Dose Route/Sig Max Daily Dose Days Date Category Dose Instructions Cosamin Ds (Glucosamine-Chondroitin) 1 Tab Tab 1 Tab PO DAILY 10/30/17 Reported Vitamin B-12 (Cyanocobalamin) 1,000 Mcg Tab 5,000 Mcg PO DAILY 10/30/17 Reported D-5000 (Cholecalciferol) 5,000 Unit Tab 1 Tab PO DAILY 30 10/30/17 Reported Atorvastatin Calcium (Atorvastatin) 40 Mg Tab 40 Mg PO QAM 30 10/27/17 Rx Clopidogrel (Clopidogrel Bisulfate) 75 Mg Tab 75 Mg PO QAM 30 10/27/17 Rx Glucophage (Metformin Hcl) 500 Mg Tab 500 Mg PO DAILY 10/25/17 Reported WITH DINNER --- And CoEnzyme Q 10 at bedtime When have you missed any doses of your medications? - Patient reports no missed doses. Although she does not use a pill box, she states she has a system and is used to taking the two new medications Clopidogrel and Atorvastatin in the AM with her breakfast. What side effects are you having from your medications? - She stated she has been intolerant to "statins" in the past and went on to tell me about how metoprolol had caused a great degree of weakness for her. I advised her that metoprolol is not a statin and that perhaps it had been a different medication. I educated her on the stroke benefits of statin therapy and that trying to comply with this medication is beneficial for stroke prevention in the future and that it's benefits on not just on you cholesterol levels. She had also c/o of some shoulder pain, however states that she had bruising and soreness there as there had been an IV placed near the area of pain. I encouraged her to continue to take the atrovastatin as prescribed as her shoulder pain likely has another explanation. What questions do you have about your medications? - She wondered if there was a best time of day to take metformin. She is currently taking w/ dinner. I advised she should continue to take with dinner as taking with food helps minimize GI side effects. - She wondered if it was ok to take her medications with milk. I advised that the current list of meds is compatible with dairy intake and that milk would not be a problem. - She asked if she could continue to take the CoQ10 100 Q HS. I advised that this would still be OK to do. - She asked if it would be OK to continue the Fish Oil, Ginseng and Glucosamine Chondroitin OTC supplements. I advised that the use of Fish Oil should be discussed with her PCP as it can "thin" one's blood and make them more prone to bleeding/bruising however there may be some health benefits. I advised she stop the Ginseng as it may have blood thinning properties as well. The Glucosamine/Chondroitin should not have an interaction w/ her current stroke meds. What problems are you having obtaining your medications? - No When is your next appointment with your primary care doctor? - Friday 11/02 w/ Dr Lang Additional comments: - She tended to have many questions about diabetic dietary measures she could take to improve her health. I educated her the best as I could over the phone on avoidance of high carb meals and the avoidance of simple carbs (pastas , breads, candies, pastries). - Patient was thankful for a f/u phone call As per the Pharmacist Discharge Counseling for Stroke Patients Protocol, this phone call has been completed within 72 hours of discharge. Thank you for allowing us to be involved in the care of this patient. Thank you for allowing us to be involved in the care of this patient.
[2017-10-30] MEDS ORDERED: COEN1CAP28 PO (15:10)
--- NOTE | 2017-11-17 06:32 | EDITING REQUIRED CODING QUERY ---
CODING QUERY To promote full compliance with coding requirements relating to patient care, provider participation is requested in all cases of certified coder uncertainty. Please assist us with the question(s) below: Coding Question(s): PDx on discharge summary is TIA without mention of CVA. Was the CVA ruled out? Physician's Response(s): ___ CVA ruled out _x__ CVA is a differential diagnosis --- see discharge summary - it seemed most likely that it was a TIA, but CVA could not be completely ruled out. Thank you ___ Other (please specify) Thank you Marybeth Barbour Principal Diagnosis: "_that condition established after study, to be chiefly responsible for occasioning the admission of the patient to the hospital for care." Co-Existing Principal Diagnosis: "_when two or more diagnoses equally meet the criteria for principal diagnosis as determined by the circumstances of admission, diagnostic work up, and/or therapy provided, and the Alphabetic Index, Tabular List, or another coding guideline does not provide sequencing direction, any one of the diagnoses may be sequenced first." "When the physician has documented what appears to be a current diagnosis in the body of the record, but has not included the diagnosis in the final diagnostic statement, the physician should be asked whether the diagnosis should be added." (Source [facility]oding [facility] 2 QTR90. p3-4)
== END 2017-10-27 15:07 | disposition home or self-care (01) | DRG 69 ==
LOC: C.EDB 09:45 → C.2T 13:42
PROVIDERS: ADMIT Student in an Organized Health Care Education/Training Program; ATTEND Family Medicine
DX: G45.9 Transient cerebral ischemic attack, unspecified (principal); I63.9 Cerebral infarction, unspecified; R29.701 NIHSS score 1; E11.9 Type 2 diabetes mellitus without complications; I10 Essential (primary) hypertension; E78.5 Hyperlipidemia, unspecified; I65.23 Occlusion and stenosis of bilateral carotid arteries; Z86.73 Personal history of transient ischemic attack (TIA), and cerebral infarction without residual deficits; Z95.1 Presence of aortocoronary bypass graft; Z79.84 Long term (current) use of oral hypoglycemic drugs; Z79.890 Hormone replacement therapy; Z82.49 Family history of ischemic heart disease and other diseases of the circulatory system; Z82.5 Family history of asthma and other chronic lower respiratory diseases

== ENCOUNTER → 2017-12-17 | Outpatient (CLI) | payer BC ==
[~2017-12-17] MED LIST changes: -CHOL1000 PO; -CONJ0.3T3 PO; -CYAN500T PO; -GINS1CAP PO; -GLUC10007 PO; -OMEG10007 PO
[2017-12-17 12:26] LABS: HEMATOCRIT 40.2 % (37-47); HEMOGLOBIN 13.4 g/dL (12.0-16.0); MEAN CELL VOLUME 89.5 fL (80-100); MEAN CORPUSCULAR HEMOGLOBIN 29.8 pg (25-34); MEAN CORPUSCULAR HGB CONC 33.3 g/dl (32-36); MEAN PLATELET VOLUME 10.5 fL (7.4-10.4); PLATELET COUNT 353 K/uL (130-400); RED CELL DISTRIBUTION WIDTH CV 13.4 % (11.5-14.5); RED CELL DISTRIBUTION WIDTH SD 43.8 fL (36.4-46.3); WHITE BLOOD COUNT 12.48 K/uL (4.8-10.8)
== END | disposition home or self-care (01) ==
LOC: C.LABBFT 11:30
PROVIDERS: ATTEND Internal Medicine
DX: K92.1 Melena (principal)

== ENCOUNTER → 2018-03-24 | Outpatient (CLI) | payer BC ==
--- NOTE | 2018-03-24 17:41 | DIAGNOSTIC IMAGING REPORT ---
R KNEE 4 OR MORE CLINICAL HISTORY: RIGHT KNEE EFFUSION COMPARISON STUDY: Right knee 09/05/2016. FINDINGS: Mild cartilage space narrowing within the medial compartment of the left knee and lateral compartment of the right knee with associated marginal osteophytes. This is consistent with osteoarthritis. There is chondrocalcinosis within the bilateral knees, left greater than right. This has slightly progressed. No fracture or dislocation within the right or left knee. Small right knee effusion. IMPRESSION: 1. Mild osteoarthritis within the bilateral knees which has slightly progressed. 2. Chondrocalcinosis within the bilateral knees. 3. Small right knee effusion. Electronically signed by: Richar Joy M.D. 03/24/2018 5:39 PM Dictated Date/Time: 03/24/2018 5:37 PM
== END | disposition home or self-care (01) ==
LOC: C.RDSM 15:17
PROVIDERS: ATTEND Physician Assistant
DX: M25.461 Effusion, right knee (principal); M25.561 Pain in right knee

== ENCOUNTER → 2018-04-21 | Outpatient (CLI) | payer BC ==
[2018-04-21 12:20] LABS: MEAN CELL VOLUME 88.1 fL (80-100); MEAN CORPUSCULAR HEMOGLOBIN 29.4 pg (25-34); MEAN CORPUSCULAR HGB CONC 33.3 g/dl (32-36); MEAN PLATELET VOLUME 10.3 fL (7.4-10.4); PLATELET COUNT 341 K/uL (130-400); RED CELL DISTRIBUTION WIDTH CV 13.6 % (11.5-14.5); RED CELL DISTRIBUTION WIDTH SD 43.9 fL (36.4-46.3); WHITE BLOOD COUNT 8.45 K/uL (4.8-10.8)
[2018-04-21 12:35] LABS: ALBUMIN 3.6 gm/dl (3.4-5.0); ALKALINE PHOSPHATASE 89 U/L (45-117); ALT/SGPT 29 U/L (12-78); AST/SGOT 26 U/L (15-37); BLOOD UREA NITROGEN 16 mg/dl (7-18); CALCIUM 9.3 mg/dl (8.5-10.1); CARBON DIOXIDE 30 mmol/L (21-32); CHOLESTEROL 235 mg/dl (0-200); CREATININE 0.88 mg/dl (0.60-1.20); GLUCOSE 146 mg/dl (70-99); LDL CHOLESTEROL CALCULATED 164 mg/dl; POTASSIUM 4.6 mmol/L (3.5-5.1); SODIUM 139 mmol/L (136-145); TOTAL PROTEIN 7.5 gm/dl (6.4-8.2)
[2018-04-21 12:57] LABS: HEMOGLOBIN A1C 7.2 % (4.5-5.6)
== END | disposition home or self-care (01) ==
LOC: C.LABBFT 10:18
PROVIDERS: ATTEND Internal Medicine
DX: Z00.00 Encounter for general adult medical examination without abnormal findings (principal); I10 Essential (primary) hypertension; E11.9 Type 2 diabetes mellitus without complications; E78.5 Hyperlipidemia, unspecified

== ENCOUNTER 2022-11-26 08:07 | Inpatient (IN) ==
[~2022-11-26 08:07] MED LIST changes: -CHOLTAB11 PO; -COEN1CAP28 PO; -CYAN10005 PO; -GLC/500 PO; -GLUC500T35 PO; +LIDOCAINE 1% LOCAL 20 ML VIAL ONE; -LPT40 PO; -PLV75 PO
[2022-11-26] MEDS ORDERED: HEPARIN (PORCINE) 1000 UNIT/ML 10 ML (CATH LAB USE ONLY) ONE ×2 (09:40→11:18)
[2022-11-26] MEDS ORDERED: fentaNYL citrate 100 MCG/2 ML VIAL ONE ×2 (09:40→11:18)
[2022-11-26] MEDS ORDERED: niCARdipine HCL INJ 2.5 MG/ML 10 ML AMP ONE ×2 (09:40→11:18)
[2022-11-26] MEDS ORDERED: MIDAZOLAM HCL 1 MG/ML 2ML VIAL ONE ×2 (09:40→11:17)
--- NOTE | 2022-11-26 09:56 | History & Physical Bridge Note ---
Date of Service November 26, 2022 History & Physical Bridge Note I have examined the patient, reviewed the History & Physical and in the interval since the performance of the History & Physical I have noted the following changes of clinical significance: no changes noted Sudden onset SOB and fatigue. Has persisted. Class 3 PAULINO. Abnormal echo. Stress not performed secondary to new echo abnormalities. Plan definitive evaluation by coronary angiography. 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
--- NOTE | 2022-11-26 09:57 | Pre Anesthesia Assessment ---
Date of Service November 26, 2022 Pre Sedation Assessment Vital Signs Pulse Resp BP Pulse Ox O2 Del Method 11/26/22 08:27 78 16 149/82 H 96 Room Air Cardiovascular + regular rate and + regular rhythm + S1 normal, + S2 normal and + murmur + capillary refill normal Respiratory normal respiratory effort, lungs clear to auscultation Pre-Sedation Airway Assessment Smoking Status: Never smoker Short, Thick Neck: No Thyromental Distance: > or= 3.5 Finger Breadths Oral Cavity: + WNL Mallampati Class: II ASA: ASA3 NPO Status Date of Last Intake of Fluids: 11/26/22 Time of Last Intake of Fluids: 07:00 Last Oral Intake of Fluids Comment: swallow with plavix Date of Last Intake of Solid Food: 11/25/22 Time of Last Intake of Solid Foods: 20:00 Notes The planned sedation has been discussed with the patient. Informed Consent was obtained. I have identified the patient, determined the appropriateness of sedation and have assessed the patient immediately prior to the procedure. All medicine(s) and interventions are by my order.
[2022-11-26] MEDS ORDERED: NITROGLYCERIN/D5W 100MCG/ML 20ML SYR ONE ×2 (10:26→11:18)
[2022-11-26 10:51] LABS: iSTAT Arterial Blood Gas HCO3 22 meg/L (19-24); iSTAT Arterial Blood Gas pCO2 34 mmHg (35-46); iSTAT Arterial Blood Gas pH 7.41 (7.35-7.45); iSTAT Arterial Blood Gas pO2 < 32 mmHg (80-95); iSTAT Carbon Dioxide 23 mmol/L (24-31); iSTAT Hematocrit 38 % (37-47); iSTAT Hemoglobin 12.9 g/dl (12.0-16.0); iSTAT Potassium 3.8 mmol/L (3.3-5.0); iSTAT Sodium 138 mmol/L (135-144)
[2022-11-26 10:51] LABS: iSTAT Arterial Blood Gas HCO3 20 meg/L (19-24); iSTAT Arterial Blood Gas pCO2 28 mmHg (35-46); iSTAT Arterial Blood Gas pH 7.46 (7.35-7.45); iSTAT Arterial Blood Gas pO2 76 mmHg (80-95); iSTAT Carbon Dioxide 21 mmol/L (24-31); iSTAT Hematocrit 40 % (37-47); iSTAT Hemoglobin 13.6 g/dl (12.0-16.0); iSTAT Potassium 4.1 mmol/L (3.3-5.0); iSTAT Sodium 137 mmol/L (135-144)
--- NOTE | 2022-11-26 11:06 | Cardiac Catheterization ---
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 Cardiac Status Clinical evaluation leading to the procedure New cardiomyopathy, history of CABG CAD Presenation: Stable angina Anginal Classification: CCS III Heart Failure: NYHA Class: CCS III Cardiogenic Shock within 24 Hours: No Cardiac Arrest within 24 Hours: No Imaging Studies Past 6 Months: Yes Stress Studies Past 6 Months: No Coronary Anatomy Dominant: Right Left Main (% Stenosis): Distal (95 to 99%, severely calcified extending into LAD) LAD (% Stenosis): Ostial (95-99 percent, calcified) and Mid (100%) D1 (% Stenosis): Ostial (100%) Circumflex (% Stenosis): Proximal (100%) RCA (% Stenosis): Proximal Grafts - LAD (%): Proximal (Mild 20%) Grafts - Circumflex (%): Ostial (100%) Grafts - RCA (%): Ostial (100%) Diagnostic Physicians Name: Jason Looney MD, PhD Closure Device Percutaneous Entry Location: Femoral Closure Device: Angio-Seal Recommendations: Medical Therapy and/or Counseling, PCI without planned CABG and CABG Cardiac Cath Procedure Full Procedure Date November 26, 2022 Pre-Procedure Diagnosis Pre-Procedure Diagnosis: Cardiomyopathy AUC Score AUC Score: 08 Post-Procedure Diagnosis Post-Procedure Diagnosis: Severe CAD Procedure(s) Performed Procedure(s) Performed: Coronary Angiography, Right Heart Cath, Ultrasound Eleazar ded Vascular Access, Aortography and Bypass Graft Angiography No Bake Molder Jason Looney MD, PhD Estimated Blood Loss Estimated Blood Loss: 10 ml Medication(s) Medication(s): Fentanyl, Lidocaine 1%, Nitroglycerin and Versed Summary of Findings Brief description: Patient was brought to the cardiac catheterization suite where she was shaved and prepped in a sterile fashion. Sedated using IV Versed and fentanyl. Soft tissues of the right groin were anesthetized using 10 mL of 1% Xylocaine. Using the ultrasound for guidance (image saved), the right femoral artery was accessed with modified Seldinger technique and a 5 [place] femoral artery sheath was placed. Again using the ultrasound for guidance, the right femoral vein was accessed and a 7 [place] femoral venous sheath was placed. Through the 7 [place] venous sheath, a 7 [place]-Da catheter was advanced. The balloon was inflated and under fluoroscopic guidance using a [place] wire the [place]-Da catheter was passed through the right heart and into the pulmonary artery terminating in the wedge position. The wire was removed. Pulmonary capillary wedge pressure was measured. The balloon was deflated and pulmonary arterial pressure and oxygen saturation were sampled. The catheter was pulled back into the right ventricle where right ventricular hemodynamics were measured. Finally, the catheter was pulled back into the right atrium or right atrial pressure and oxygen saturation were sampled. Cardiac output was determined by the method of Luis Miguel. The catheter was removed and we moved to coronary angiography and bypass graft angiography. Left coronary angiography performed in orthogonal views with a 5 [place]ian JL 4 diagnostic catheter. Right coronary angiography performed in orthogonal views with a 5 [place] JR4 diagnostic catheter. Vein graft angiography was attempted with a 5 [place] JR4 diagnostic catheter. MARYSOL graft angiography was performed with a 5 [place] JR4 diagnostic catheter. Supravalvular aortography was performed with a 5 [place] angled pigtail catheter. All diagnostic catheters were removed. Limited right femoral artery angiography was performed to evaluate for closure. Findings were acceptable, therefore, the femoral artery sheath was exchanged for a 6 [place] Angio-Seal closure device. This was deployed in the recommended fashion. We obtained immediate hemostasis and the patient remained h emodynamically stable. The femoral venous sheath was then removed and hemostasis obtained using manual compression. Patient was returned to the recovery area. This ended the case. Right heart cath: PCWP: 17 mmHg PAP: 49/21 mmHg, mean 33 mmHg RV: 57/4 mmHg, RVEDP 13 mmHg RA: 11 mmHg Aortic oxygen saturation: 96% Pulmonary arterial oxygen saturation: 64% Right atrial oxygen saturation: 62% Cardiac output (Luis Miguel): 4.61 L/min Cardiac index (Luis Miguel): 2.57 L/min/m SVR: 29.26 Rogers units PVR: 1.73 Rogers units TAVR: 31.21 Rogers units Coronary and bypass graft angiography LMT: Large-caliber vessel bifurcating into LAD and circumflex. There is diffuse heavy calcification with mild disease. The distal vessel has severe stenosis extending across the ostium of the LAD. Stenosis appears 95 to 99%. Severe calcification. LAD: Medium to large caliber and transapical. Proximal segment is mildly calcified. The ostium has severe calcified disease extending from the distal left main. The proximal LAD has mild disease less than 30% stenosis. There are several large septals originating from the LAD which appear to provide left to right and left left collaterals. The mid LAD appears to be 100% occluded. LCx: Medium to large caliber and probably nondominant. Occluded in the proximal segment. RCA: Probably dominant. 100% occluded in the proximal segment. There are [id number] collaterals to the PDA. SVG to OM1 to OM2 (jump graft): This appears to be 100% occluded at the ostium. SVG to PDA: This appears to be 100 and occluded at the ostium. HAGAN to LAD: Large caliber widely patent graft. Proximally there is mild disease and some catheter induced vasospasm which was relieved with intracoronary nitroglycerin. Distal anastomosis is on the distal LAD. This fills retrograde to the mid segment of the LAD and antegrade down the distal LAD which is seen to wrap the apex. There are collaterals originating from the LAD which include left to left (large diagonal, OM) and left to right (PDA) respectively. Supravalvular aortography: Ascending aorta is dilated There is no flow visualized in 2 either SVG bypass Summary: 1. Mild to moderate pulmonary hypertension. No evidence of volume overload at this time. Normal cardiac output. 2. Severe multivessel [place]-nine [place] coronary disease. 3. 3 saphenous vein grafts appear to be occluded. 4. HAGAN to LAD graft is patent without significant disease. Provides collateralization to the RCA, circumflex, and diagonal territories. 5. Left main to ostial LAD stenosis may be amenable to PCI. However, it will likely need atherectomy prior to stent implantation which is unavailable at this institution. Consider referral to tertiary center. Recommendations: 1. Optimize medical therapy for secondary prevention of coronary disease. Currently on aspirin, Plavix, and isosorbide mononitrate. Has not been taking her Repatha. She should comply with Repatha recommendation. In addition, she should be placed on beta-moisés (heart failure indicated given EF) and angiotensin receptor moisés/TOBY inhibitor/Entresto. This shall be initiated in the outpatient setting. 2. Could increase antianginal regimen beginning with beta-moisés, titration of isosorbide mononitrate. 3. Referral to tertiary center regarding revascularization options including; redo CABG versus complex PCI. Hemodynamics Rest Ao:: 118/62 mmHg, mean 86 mmHg Final Ao: 162/117 mmHg, mean 144 mmHg LV: Not performed Recommendations Recommendations: Medical Therapy and/or Counseling, PCI without planned CABG and CABG Specimens Specimens: None Radiation Exposure (mGy) 1361 mGy, fluoroscopy time 13.7 minutes Contrast (mls) 175 mL Anesthesia 1 mg IV Versed, 25 mcg IV fentanyl Procedural Complication(s) None Disposition Recovery Room\PACU I attest to the content of the Intraoperative Record and any orders documented therein. Any exceptions are noted below. [facility] Card Cath Procedure Codes Cardiac Catheterization Procedure 1: Cardiovascular Cath Procedures: 92483 Supravalvular Aortography (Injection during Cardiac Cath) Therapeutic Services & Ancillary Procedure 1: Cardiovascular Tx and Anc Procedures: 45537 Ultrasonic Guidance Vascular Access Moderate Sedation Procedure 1: Sedation/Anesthesia: 99841 Mod Sedation by the same physician;Init15 Min Child Age 5 & Up (15 minutes (total 39 minutes)) Procedure 2: Sedation/Anesthesia: 33335 Mod Sedation by the same physician; Ea [id number] Minutes (24 additional minutes, total 39 minutes) PG Care Time/CCT Total # of Minutes Spent Total Time Spent with Patient: Total time spent is greater than 50% in coordination of care (as documented) at patient's floor/unit and/or counseling patient:
[2022-11-26] MEDS ORDERED: hydrALAZINE HCL 20 MG/ML VIAL IV STA (12:17)
[2022-11-26] MEDS ORDERED: hydrALAZINE HCL 20 MG/ML VIAL ONE (12:18)
--- NOTE | 2022-11-26 12:36 | Operative Report ---
[facility] Post Operative Report Pre & Post Diagnosis Operation Date: 11/26/22 09:30 <No data on this case meets the specified criteria> I identified the patient and participated in the time-out.: Yes Procedure Operation Date: 11/26/22 09:30 Actual Procedures p Cath, Right and Left with Grafts - Jason Looney MD, PhD s Ultrasound Vascular Access - Jason Looney MD, PhD Surgeon Jason Looney MD, PhD Spin Tank Tender In a Estimated Blood Loss 10 Findings Consistent with Post-Op Diagnosis Specimens None Description of Procedure None I attest to the content of the Intraoperative Record and any orders documented therein. Any exceptions are noted below.
--- NOTE | 2022-11-26 12:38 | Post Anesthesia Assessment ---
Date of Service November 26, 2022 Post Sedation Assessment Vital Signs Pulse Resp BP Pulse Ox O2 Del Method 11/26/22 12:15 88 14 158/123 H 98 Room Air 11/26/22 11:45 90 14 198/104 H 98 Room Air 11/26/22 11:30 80 16 172/120 H 98 Room Air 11/26/22 11:15 85 16 147/82 H 98 Room Air 11/26/22 11:00 85 16 150/85 H 98 Room Air 11/26/22 10:45 70 16 163/97 H 98 Room Air 11/26/22 08:27 78 16 149/82 H 96 Room Air Recovery Score Activity: Moves 4 extremities Respiration: Deep Breath/Cough Circulation: +/-20% PreAnes Value Consciousness: Fully Awake Oxygen Saturation: > 92% On Room Air Post Anesthesia Score: 10 Discharge Sedation Level of Care: Phase I Post Sedation Plan On clinical assessment, the patient appears to have tolerated the sedation without complications. Patient is recovering as anticipated. Patient will continue to be monitored by nursing and may be discharged when sedation discharge criteria are met per below protocol. Upon Completions of procedure up to 15 minutes continue every 5 minute vital signs and the P.A.R. score; then discharge to a Phase I or Fast Track to Phase II per the following guidelines: * Discharge Patient to appropriate Phase II area if PAR is 8 or greater or return to pre- procedure baseline. The post - procedure orders will be as directed. * If PAR score is less than 8 or not return to pre-procedure baseline then patient will follow Phase I monitoring till PAR is reached for Phase II. The Phase I may be done in procedure room or may call to secure a Phase I area. * If naloxone or flumazenil are used for reversal, hold in Phase I for continued monitoring from when last reversal dose was given for a minimum of 60 minutes or longer pending the nurse and/or physician discretion of patient condition before discharge to Phase II. Please call the Sedation Physician to re-evaluate and complete post-note for discharge to Phase II area. Do NOT discharge from procedure sedation or Phase 1 until post- sedation evaluation note is complete by procedure /sedation MD Sedation Discharge Instructions to be given to the patient at discharge to home. [facility] [place] Procedure Codes (Charges) Indication for Procedure Indication for procedure: New cardiomyopathy Sedation/Anesthesia Procedure 1: Sedation/Anesthesia: 11079 Mod Sedation by the same physician;Init15 Min Child Age 5 & Up Total Sedation Time (minutes): 15 Procedure 2: Sedation/Anesthesia: 53979 Mod Sedation by the same physician; Ea [id number] Minutes (Additional 24 minutes (total time 39 minutes)) Total Sedation Time (minutes): 39
[2022-11-26] MEDS ORDERED: METOPROLOL TARTRATE 1 MG/ML VIAL IV ONE (13:00)
[2022-11-26] MEDS ORDERED: ASPIRIN 81 MG CHEW ONE (13:00)
[2022-11-26] MEDS ORDERED: NITROGLYCERIN SL 0.4 MG/TAB TAB ONE (13:45)
[2022-11-26] MEDS ORDERED: NITROGLYCERIN SL 0.4 MG/TAB TAB SL PRN ×2 (13:49→13:52)
[2022-11-26 13:55] LABS: iSTAT Arterial Blood Gas HCO3 22 meg/L (19-24); iSTAT Arterial Blood Gas pCO2 35 mmHg (35-46); iSTAT Arterial Blood Gas pH 7.42 (7.35-7.45); iSTAT Arterial Blood Gas pO2 33 mmHg (80-95); iSTAT Carbon Dioxide 23 mmol/L (24-31); iSTAT Hematocrit 39 % (37-47); iSTAT Hemoglobin 13.3 g/dl (12.0-16.0); iSTAT Potassium 4.1 mmol/L (3.3-5.0); iSTAT Sodium 139 mmol/L (135-144)
[2022-11-26] MEDS ORDERED: ONDANSETRON INJ 2 MG/ML 2 ML VIAL IV PRN (14:37)
[2022-11-26] MEDS ORDERED: MoRPHine SULFATE 2 MG/ML CARP IV PRN (14:37)
[2022-11-26] MEDS ORDERED: ALBUTEROL HFA 8 GM INHALER INH PRN (14:47)
[2022-11-26] MEDS ORDERED: NON-FORMULARY MEDICATION (Evolocumab [Repatha Sureclick] 140 mg/mL pen injector) SQ SCH (15:00)
[2022-11-26] MEDS: ACETAMINOPHEN 325 MG TAB PO PRN (16:12)
[2022-11-26] MEDS ORDERED: Heparin IV Adult Wt-Based Low-Dose *NO* Bolus Protocol IV STA (17:12)
--- NOTE | 2022-11-26 17:17 | Electrocardiogram Report ---
Test Reason : Blood Pressure : / mmHG Vent. Rate : 092 BPM Atrial Rate : 092 BPM P-R Int : 166 ms QRS Dur : 108 ms QT Int : 378 ms P-R-T Axes : 052 099 158 degrees QTc Int : 467 ms Normal sinus rhythm Rightward axis Minimal voltage criteria for LVH, may be normal variant Anteroseptal infarct , age undetermined Abnormal ECG Confirmed by Kostas Singer ([id number]) on 11/26/2022 5:16:58 PM Referred By: Lana Wills Confirmed By:Los Singer
--- NOTE | 2022-11-26 17:19 | Electrocardiogram Report ---
Test Reason : Blood Pressure : / mmHG Vent. Rate : 075 BPM Atrial Rate : 075 BPM P-R Int : 164 ms QRS Dur : 116 ms QT Int : 430 ms P-R-T Axes : 051 063 156 degrees QTc Int : 480 ms Normal sinus rhythm Minimal voltage criteria for LVH, may be normal variant Anteroseptal infarct (cited on or before 26-NOV-2022) Abnormal ECG When compared with ECG of 26-NOV-2022 12:51, (unconfirmed) No significant change was found Confirmed by Kostas Singer ([id number]) on 11/26/2022 5:18:40 PM Referred By: Lana Wills Confirmed By:Los Singer
--- NOTE | 2022-11-26 18:53 | Hospitalist Consultation ---
Date of Consultation November 26, 2022 Assessment & Plan (1) Hx of CABG: Coronary artery disease, history of CABG times 03/2007 Cardiac catheterization: 1. Mild to moderate pulmonary hypertension. No evidence of volume overload at this time. Normal cardiac output. 2. Severe multivessel tyonek coronary disease. 3. 3 saphenous vein grafts appear to be occluded. 4. HAGAN to LAD graft is patent without significant disease. Provides collateralization to the RCA, circumflex, and diagonal territories. 5. Left main to ostial LAD stenosis may be amenable to PCI. However, it will likely need atherectomy prior to stent implantation which is unavailable at this institution. Consider referral to tertiary center. Management per primary cardiology team. 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 Stopped taken because cannot tolerate from abdominal cramps. Metoformin caused diarrhea at any dose per pt. Hold home antilipemics Glucose checks AC/at bedtime A1c pending, previously poorly controlled at 8.06 September 2022 Given concurrent heart failure and poor control recommend addition of SGLT2 if tolerated on discharge. Canagliflozin 100 mg daily with outpatient titration reasonable option Hyperlipidemia Pending to start Repatha Statin intolerant History of TIA Continue Plavix 75 mg daily Continue aspirin p.o. 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 Echo was with mild to moderate hypokinesis of the left ventricle, patient was scheduled for a stress echo this was deferred due to the echo abnormalities. She presented today for scheduled cardiac catheterization. We have been consulted for postoperative medication management. Kayli reports that she presented for recurrent pain sometimes in her left arm and shoulder and which has radiated to her shoulders which was brought out by exercise. She reports she had some left shoulder pain after her catheterization, at time of bedside assessment she reports she has had no chest pain, no back pain, no shoulder blade pain, and no left arm pain although did have some left arm pain which gradually faded. She is aware that she has multivessel disease pending follow-up to cardiothoracic surgery at [place]. She has had difficulty tolerating many medications including metformin, statins, glimepiride in the past. Discussed her last A1c above goal, and the importance of well-controlled diabetes to helping reduce her risk of progressive heart disease. Patient does not think she has been on an SGLT2 inhibitor before, is willing to try this. Notes that she could not tolerate metformin due to diarrhea and sleepiness, or glimepiride due to severe abdominal cramps. Denies numbness/tingling/nephropathy. She reports that she did have a stroke 4 to 5 years ago and received tPA at the time, has some mild left-sided weakness otherwise no residual deficits from this. She is maintained on dual antiplatelet therapy following this. At bedside assessment denies nausea, diarrhea, shortness of breath, fever, chills, sweats. No pain at her right femoral groin access site. No additional questions or concerns. Medical History: Reviewed Medications: Reviewed Surgical History: Reviewed Allergies: Reviewed Social History:Denies any current or former tobacco use. No alcohol use. No recreational substance use Code Status:Full code Allergies Allergy/AdvReac Type Severity Reaction Status Date / Time codeine Allergy Unknown ANXIOUS Verified 10/31/22 11:24 Penicillins Allergy Unknown RASH Verified 10/31/22 11:24 [id number]-FPH-UdP Reductase AdvReac Unknown Unknown Verified 11/26/22 14:54 Inhibitor Home Medications Medication Instructions Recorded Confirmed Type blood sugar diagnostic (TrusteerTouch #10 ea 07/29/19 10/02/22 History Verio test strips) cinnamon bark 500 mg capsule 500 mg PO DAILY 07/29/19 11/26/22 History (Cinnamon) coenzyme Q10 400 mg capsule (Co See Rx Instructions .Route .COMPLEX 07/29/19 11/26/22 History Q-10) cyanocobalamin (vitamin B-12) sublingual 07/29/19 10/17/22 History 1,000 mcg sublingual tablet glucosamine sulfate [Glucosamine] PO 07/29/19 10/31/22 History lancets 33 gauge (OneTouch Delica #100 ea 07/29/19 10/02/22 History Lancets) triamcinolone acetonide 0.1 % See Rx Instructions topical ONCE 08/09/21 11/26/22 Rx topical cream #30 grams cholecalciferol (vitamin D3) 125 125 mcg PO DAILY 09/25/21 11/26/22 History mcg (5,000 unit) capsule magnesium citrate 100 mg capsule 100 mg PO DAILY 09/25/21 11/26/22 History clopidogrel 75 mg tablet 75 mg PO DAILY #90 tabs 03/29/22 11/26/22 Rx aspirin 81 mg tablet,delayed 81 mg PO DAILY #90 tabs 10/17/22 11/26/22 Rx release (Adult Low Dose Aspirin) evolocumab 140 mg/mL subcutaneous 140 mg subcut .every 2 weeks #2 mL 10/17/22 11/26/22 Rx pen injector (Sury Dolan) glimepiride 2 mg tablet 1 mg PO DAILY 10/17/22 11/26/22 History multivitamin with minerals 2 tab PO .COMPLEX 10/17/22 11/26/22 History (Hair,Skin and Nails tablet) nitroglycerin 0.4 mg sublingual 0.4 mg sublingual Q5M PRN chest 10/17/22 11/26/22 Rx tablet (Nitrostat) pain #25 tabs zinc gluconate 50 mg tablet 50 mg PO .COMPLEX 10/17/22 11/26/22 History albuterol sulfate 90 mcg/actuation 2 puff inhalation Q6H PRN 10/31/22 11/26/22 Rx aerosol inhaler shortness of breath or wheezing or cough #8.5 grams isosorbide mononitrate 60 mg 60 mg PO QAM #30 tabs 10/31/22 11/26/22 Rx tablet,extended release 24 hr Patient History Medical History Dyslipidemia History of TIA (transient ischemic attack) Mitral regurgitation Type 2 diabetes mellitus Surgical History History of back surgery Hx of CABG S/P cholecystectomy S/P eye surgery S/P knee surgery S/P tonsillectomy and adenoidectomy Family History Mother Asthma Heart disease Myocardial infarction Grandmother (Paternal) Colorectal cancer Father Myocardial infarction Sister Diabetes Brother Diabetes Denies family history of Ovarian cancer Prostate cancer Breast cancer Social History Smoking Status: Never smoker Second Hand Exposure: No; Hx Alcohol Use: No Hx Substance Use: No Preferred Language: Fijian Communication Ability: Effective Visual Impairment: No Limitations Hearing Ability: Normal Tobacco Prizer Required: No Beliefs That Will Affect Care: None marital status: Current Living Situation: Spouse current occupational status: retired Feels Safe at Home: Yes Safety Concerns: Feels Safe At This Time Childhood Exposure to Second-Hand Smoke: No Dental Care, Regularly: Yes Physical Activity Frequency: Daily Seatbelt Use: always Sunscreen Use: Yes Assistive Devices: None Review of Systems Review of Systems: All systems reviewed & are unremarkable except as noted in HPI & below Physical Exam Physical Exam: General: A&Ox3. NAD. Cooperative. HEENT: Atraumatic, normocephalic. Pulm: CTAB A&P. Symmetrical chest rise. No increased work of breathing. No respiratory distress. Cardiac: RRR, +sm. Radial pulses intact and symmetrical. Abdominal: Nontender, nondistended, soft. BS present. Ext: Ext warm/dry. R femoral access site without erythema, bleeding, or swelling. Results & Data Results & Data ([facility]) Vital Signs (Past 12 Hours) Vital Signs Pulse Pulse Resp BP BP Pulse Ox O2 Del Method 11/26/22 15:45 72 16 125/80 98 Room Air 11/26/22 14:45 74 14 123/65 99 Room Air 11/26/22 14:15 74 14 118/57 L 99 Room Air 11/26/22 13:30 72 14 129/69 99 Room Air 11/26/22 13:15 75 16 140/78 99 Room Air 11/26/22 13:03 79 158/93 H 11/26/22 12:45 88 16 159/83 H 99 Room Air 11/26/22 12:15 88 14 158/123 H 98 Room Air 11/26/22 11:45 90 14 198/104 H 98 Room Air 11/26/22 11:30 80 16 172/120 H 98 Room Air 11/26/22 11:15 85 16 147/82 H 98 Room Air 11/26/22 11:00 85 16 150/85 H 98 Room Air 11/26/22 10:45 70 16 163/97 H 98 Room Air 11/26/22 08:27 78 16 149/82 H 96 Room Air PG Care Time/CCT Total # of Minutes Spent Total Time Spent with Patient: Total time spent is greater than 50% in coordination of care (as documented) at patient's floor/unit and/or counseling patient: Coding Level of Care Code 62225 Inpt Consult Level 4 Diagnoses Hx of CABG Z95.1 Type 2 diabetes mellitus E11.9 History of TIA (transient ischemic attack) Z86.73 CAD, multiple vessel I25.10
[2022-11-26] MEDS ORDERED: GLUCOSE 40% GEL 15 GM TUBE PO PRN (18:58)
[2022-11-26] MEDS ORDERED: GLUCOSE 10 TAB/TUBE PO PRN (18:58)
[2022-11-26] MEDS ORDERED: DEXTROSE 50% 50 ML SYRINGE IV PRN (18:58)
[2022-11-26] MEDS ORDERED: GLUCAGON FOR INJ 1 MG VIAL SQ PRN (18:58)
[2022-11-26] MEDS ORDERED: CARBOHYDRATES FOR HYPOGLYCEMIA PO PRN (18:58)
[2022-11-26] MEDS ORDERED: PHARMACY GLYCEMIC MGMT CONSULT PRN (18:58)
[2022-11-26 20:16] LABS: Basophils # (auto) 0.04 K/uL (0-0.2); Basophils % (auto) 0.4 %; Hematocrit (blood only) 41.1 % (34.1-44.9); Hemoglobin 13.4 g/dl (12.0-16.0); Immature Granulocytes # (auto) 0.05 K/uL (0.00-0.02); Immature Granulocytes % (auto) 0.5 %; Mean Corpuscular Hemoglobin 28.6 pg (25.0-34.0); Mean Corpuscular Hgb Conc 32.6 g/dL (32.0-36.0); Mean Corpuscular Volume 87.6 fL (80.0-100.0); Mean Platelet Volume 10.9 fL (9.4-12.3); Monocytes # (auto) 0.48 K/uL (0.24-0.82); Monocytes % (auto) 4.3 %; Neutrophils # (auto) 9.51 K/uL (1.4-6.5); Neutrophils % (auto) 85.8 %; Platelet Count 377 K/uL (130-400); RDW Coefficient of Variation 13.4 % (11.5-14.5); Red Blood Count 4.69 M/uL (3.93-5.22); White Blood Count 11.08 K/ul (4.8-10.8)
[2022-11-26 20:30] LABS: INR 1.1 (0.9-1.1); Partial Thromboplastin Ratio 0.9; Partial Thromboplastin Time 24.3 Seconds (21.0-31.0); Prothrombin Time 11.3 Seconds (9.0-12.0)
[2022-11-26] MEDS: HEPARIN SODIUM/DEXTROSE 25,000 UNITS/500 ML BAG IV SCH (20:46)
[2022-11-26] MEDS: carvediloL 3.125 MG TAB PO SCH (20:47)
[2022-11-26] MEDS: INSULIN ASPART PER UNIT SC SCH (20:50)
[2022-11-26] MEDS ORDERED: ENOXAPARIN INJ 40 MG/0.4 ML SYR SQ SCH (21:00)
[2022-11-27] MEDS: ACETAMINOPHEN 325 MG TAB PO PRN (01:54)
[2022-11-27] MEDS ORDERED: INSULIN ASPART PER UNIT SC SCH (02:00)
[2022-11-27 04:00] LABS: Basophils # (auto) 0.05 K/uL (0-0.2); Basophils % (auto) 0.4 %; Eosinophils # (auto) 0.12 K/uL (0-0.50); Eosinophils % (auto) 1.1 %; Hematocrit (blood only) 37.8 % (34.1-44.9); Hemoglobin 12.5 g/dl (12.0-16.0); Immature Granulocytes # (auto) 0.03 K/uL (0.00-0.02); Immature Granulocytes % (auto) 0.3 %; Lymphocytes % (auto) 27.3 %; Mean Corpuscular Hemoglobin 28.7 pg (25.0-34.0); Mean Corpuscular Hgb Conc 33.1 g/dL (32.0-36.0); Mean Corpuscular Volume 86.9 fL (80.0-100.0); Mean Platelet Volume 11.2 fL (9.4-12.3); Monocytes # (auto) 0.77 K/uL (0.24-0.82); Monocytes % (auto) 6.8 %; Neutrophils # (auto) 7.28 K/uL (1.4-6.5); Neutrophils % (auto) 64.1 %; Platelet Count 336 K/uL (130-400); RDW Coefficient of Variation 13.3 % (11.5-14.5); RDW Standard Deviation 41.7 fL (36.4-46.3); Red Blood Count 4.35 M/uL (3.93-5.22); White Blood Count 11.35 K/ul (4.8-10.8)
[2022-11-27 04:15] LABS: Partial Thromboplastin Ratio 1.1; Partial Thromboplastin Time 31.5 Seconds (21.0-31.0)
[2022-11-27 04:25] LABS: BUN Creatinine Ratio 17.6 (10-20); Calcium 8.8 mg/dl (8.5-10.1); Creatinine Clr Calc Pharmacy 48.6 ml/min; Est GFR (African American) 69.1 ml/min; Est GFR (Non-African American) 59.6 ml/min; Potassium 3.7 mmol/L (3.5-5.1)
[2022-11-27] MEDS ORDERED: HEPARIN SOD (PORCINE) 1000 UNIT/ML IV ONE (04:45)
--- NOTE | 2022-11-27 07:29 | Pharmacy Report ---
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 Pt also does not tolerate metformin d/t diarrhea at any dose. Considering SGLT2 upon DC w/ CHF comorbidity. * Oral agents are not recommended for inpatient use d/t drug interactions, changing PO intake, and difficulty titrating for acute hyper/hypoglycemia. * Will hold oral agents for admission and utilize SQ basal bolus insulin regimen which is the recommended regimen for inpatient glycemic control. * Will initiate weight based insulin dosing for insulin guicho patient and titrate based on BSG trends. PLAN FOR INPATIENT GLYCEMIC CONTROL: * Hold outpatient oral diabetes medications * Basal insulin * Lantus 20 units SQ Daily * Bolus insulin * NovoLog per scale ACHS or Q6hrs while NPO * Goal Range: Low 110 mg/dL - High 140 mg/dL * Correction Factor: 30 mg/dL/unit * Nutritional / Prandial insulin per carb ratio of 1 unit per 10 grams CHO consumed
[2022-11-27] MEDS ORDERED: LANTUS PER UNIT CHARGE SQ SCH (07:30)
[2022-11-27 07:59] LABS: Estimated Average Glucose 194 mg/dl; Hemoglobin A1C 8.4 % (4.5-5.6)
[2022-11-27] MEDS: INSULIN ASPART PER UNIT SC SCH ×4 (08:00→21:07)
[2022-11-27] MEDS: carvediloL 3.125 MG TAB PO SCH ×2 (08:14→21:40)
[2022-11-27] MEDS: ASPIRIN 81 MG ECTAB PO SCH (08:14)
[2022-11-27] MEDS: ISOSORBIDE MONO EXTENDED REL 60 MG TABCR PO SCH (08:15)
[2022-11-27] MEDS: CLOPIDOGREL BISULFATE 75 MG TAB PO SCH (08:15)
--- NOTE | 2022-11-27 08:58 | Hospitalist Progress Note ---
Date of Service November 27, 2022 Assessment & Plan (1) Hx of CABG: Plan: Coronary artery disease, history of CABG times 03/2007 Cardiac catheterization: 1. Mild to moderate pulmonary hypertension. No evidence of volume overload at this time. Normal cardiac output. 2. Severe multivessel yurok coronary disease. 3. 3 saphenous vein grafts appear to be occluded. 4. HAGAN to LAD graft is patent without significant disease. Provides collateralization to the RCA, circumflex, and diagonal territories. 5. Left main to ostial LAD stenosis may be amenable to PCI. However, it will likely need atherectomy prior to stent implantation which is unavailable at this institution. Consider referral to tertiary center. Management per primary cardiology team. Carvedilol 3.125mg BID added (I sent rx as noticed none sent with other meds), BP too low for addition of Entresto currently To restart Repatha outpatient given statin intolerance Continue ASA/Plavix at disharge, Carvedilol 3.125mg BID, imdur, repatha Patient is being arranged for outpatient follow-up with cardiothoracic surgery at [facility] US for femoral site to be completed prior to discharge -- has known femoral atherosclerotic disease (but good distal pulses) Remains on Heparin gtt until results. 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 Metformin caused diarrhea at any dose per pt, however NEVER TRIED EXTENDED RELEASE A1c 8.4 BSG AC/HS, sliding scale, pharmacy on consult -- refused AM dose as "too much medication" Discussed SGLT2 vs Metformin XR -- agreeable to start/trial 500mg metformin XR at d/c with food and increase to BID and further titrations outpatient with PCP as well as discussion about starting SGLT2 like jardiance in follow up Hyperlipidemia statin intolerant, recs for resume/start repatha outpatient History of TIA Continue Plavix 75 mg daily, ASA 81mg daily (2) Type 2 diabetes mellitus: (3) History of TIA (transient ischemic attack): (4) CAD, multiple vessel: Plan awaiting US for femoral access, if unremarkable, cardiology plans to d/c patient and to have outpt f/u [facility] who performed original bypass surgery Remains on Heparin gtt in meantime Starting metformin XR at d/c for DM, titrate outpatient Thank you for allowing hospitalist service to participate in the care of Ms Sotelo. Hospitalist service will sign off at this time. Please call with any que stions/concerns. Admission and Anticipated Discharge Date Admission Date: November 26, 2022 Supervising Physician Co-Signing Physician Notes I did not personally interview or examine the patient. I did review SARAH Llamas's assessment and plan and agree with the following exceptions: BP now improved, okay to start Entresto today. Subjective eval this morning, doing well, family at bedside anticipating discharge today -- she states she wants to go home. awaiting US for groin give pain reported/rule out clot. Remains on heparin in meantime. Discussed A1c/DM medications -- she had been unable to tolerate the glimperide outpatient, prior issues w/ metformin but never tried the XR formulation. Agreeable to try at 500mg dose for a week/increase as tolerated and discuss with PCP about possible jardiance/alternatives if issues w/ XR metformin. Cards arranging f/u [facility] for further eval/treatment of Ms Sotelo. Questions/concerns addressed at this time. Review of Systems Review of Systems: All systems reviewed & are unremarkable except as noted in HPI & below Physical Exam 2 Physical Exam: General: WD/WN female sitting up in bed, NAD, family at bedside HEENT: head normocephalic, atraumatic, mmm, trachea midline without deviation Chest: prior sternotomy scar Resp: CTAB, no w/c/r, on room air CV: RRR, +systolic murmur, no pitting edema/calf tenderness GI: +BS, soft/NT : no alicea MSK/Neuro: moves all extremities, no focal deficit Skin: warm, dry, R femoral access site with slight tenderness to palpation, +bruit, good pulses distally Psych: AOX3, cooperative, anxious to be discharged when able Results & Data Results & Data ([facility]) Vital Signs (Past 12 Hours) Vital Signs Temp Pulse Pulse Resp BP Pulse Ox O2 Del Method 11/27/22 07:40 36.3 C L 75 18 135/71 95 Room Air 11/27/22 03:56 36.2 C L 71 18 130/72 95 Room Air 11/26/22 22:00 80 Laboratory Results 1211/27/22 11/27/22 Range/Units 11:41 10:58 07:43 WBC (4.8-10.8) K/ul RBC (3.93-5.22) M/uL Hgb (12.0-16.0) g/dl Hct (34.1-44.9) % MCV (80.0-100.0) fL MCH (25.0-34.0) pg MCHC (32.0-36.0) g/dL RDW Std Deviation (36.4-46.3) fL RDW Coeff of Marielena (11.5-14.5) % Plt Count (130-400) K/uL MPV (9.4-12.3) fL Immature Gran % (Auto) % Neut % (Auto) % Lymph % (Auto) % [place]ackelford % (Auto) % Eos % (Auto) % Baso % (Auto) % Neut # (Auto) (1.4-6.5) K/uL Lymph # (Auto) (1.2-3.4) K/uL [place]elford # (Auto) (0.24-0.82) K/uL Eos # (Auto) (0-0.50) K/uL Baso # (Auto) (0-0.2) K/uL Immature Gran # (Auto) (0.00-0.02) K/uL PT (9.0-12.0) Seconds INR (0.9-1.1) APTT 41.7 H (21.0-31.0) Seconds PTT Ratio 1.5 Sodium (136-145) mmol/L Potassium (3.5-5.1) mmol/L Chloride (98-107) mmol/L Carbon Dioxide (21-32) mmol/L Anion Gap (3-11) BUN (6-23) mg/dl Creatinine (0.6-1.2) mg/dl Est Cr Clr Drug Dosing ml/min Est GFR ( Amer) ml/min Est GFR (Non-Af Amer) ml/min BUN/Creatinine Ratio (10-20) Glucose (70-99(Fasting)) mg/dl POC Glucose 147 H 203 H (70-99) mg/dl Estimat Average Glucose mg/dl Hemoglobin A1c (4.5-5.6) % Calcium (8.5-10.1) mg/dl Troponin I High Sens (0-14) pg/ml 11/27/22 11/27/22 11/27/22 Range/Units 07:41 03:38 03:38 WBC (4.8-10.8) K/ul RBC (3.93-5.22) M/uL Hgb (12.0-16.0) g/dl Hct (34.1-44.9) % MCV (80.0-100.0) fL MCH (25.0-34.0) pg MCHC (32.0-36.0) g/dL RDW Std Deviation (36.4-46.3) fL RDW Coeff of Marielena (11.5-14.5) % Plt Count (130-400) K/uL MPV (9.4-12.3) fL Immature Gran % (Auto) % Neut % (Auto) % Lymph % (Auto) % [place]ackelford % (Auto) % Eos % (Auto) % Baso % (Auto) % Neut # (Auto) (1.4-6.5) K/uL Lymph # (Auto) (1.2-3.4) K/uL [place]ackelford # (Auto) (0.24-0.82) K/uL Eos # (Auto) (0-0.50) K/uL Baso # (Auto) (0-0.2) K/uL Immature Gran # (Auto) (0.00-0.02) K/uL PT (9.0-12.0) Seconds INR (0.9-1.1) APTT (21.0-31.0) Seconds PTT Ratio Sodium 134 L (136-145) mmol/L Potassium 3.7 (3.5-5.1) mmol/L Chloride 102 (98-107) mmol/L Carbon Dioxide 24 (21-32) mmol/L Anion Gap 8 (3-11) BUN 16 (6-23) mg/dl Creatinine 0.91 (0.6-1.2) mg/dl Est Cr Clr Drug Dosing 48.6 ml/min Est GFR ( Amer) 69.1 ml/min Est GFR (Non-Af Amer) 59.6 ml/min BUN/Creatinine Ratio 17.6 (10-20) Glucose 177 H (70-99(Fasting)) mg/dl POC Glucose (70-99) mg/dl Estimat Average Glucose 194 mg/dl Hemoglobin A1c 8.4 H (4.5-5.6) % Calcium 8.8 (8.5-10.1) mg/dl Troponin I High Sens 1138.0 H* D (0-14) pg/ml 11/27/22 11/27/22 11/27/22 Range/Units 03:38 03:38 01:53 WBC 11.35 H (4.8-10.8) K/ul RBC 4.35 (3.93-5.22) M/uL Hgb 12.5 (12.0-16.0) g/dl Hct 37.8 (34.1-44.9) % MCV 86.9 (80.0-100.0) fL MCH 28.7 (25.0-34.0) pg MCHC 33.1 (32.0-36.0) g/dL RDW Std Deviation 41.7 (36.4-46.3) fL RDW Coeff of Marielena 13.3 (11.5-14.5) % Plt Count 336 (130-400) K/uL MPV 11.2 (9.4-12.3) fL Immature Gran % (Auto) 0.3 % Neut % (Auto) 64.1 % Lymph % (Auto) 27.3 % Shackelford % (Auto) 6.8 % Eos % (Auto) 1.1 % Baso % (Auto) 0.4 % Neut # (Auto) 7.28 H (1.4-6.5) K/uL Lymph # (Auto) 3.10 (1.2-3.4) K/uL Shackelford # (Auto) 0.77 (0.24-0.82) K/uL Eos # (Auto) 0.12 (0-0.50) K/uL Baso # (Auto) 0.05 (0-0.2) K/uL Immature Gran # (Auto) 0.03 H (0.00-0.02) K/uL PT (9.0-12.0) Seconds INR (0.9-1.1) APTT 31.5 H (21.0-31.0) Seconds PTT Ratio 1.1 Sodium (136-145) mmol/L Potassium (3.5-5.1) mmol/L Chloride (98-107) mmol/L Carbon Dioxide (21-32) mmol/L Anion Gap (3-11) BUN (6-23) mg/dl Creatinine (0.6-1.2) mg/dl Est Cr Clr Drug Dosing ml/min Est GFR ( Amer) ml/min Est GFR (Non-Af Amer) ml/min BUN/Creatinine Ratio (10-20) Glucose (70-99(Fasting)) mg/dl POC Glucose 128 H (70-99) mg/dl Estimat Average Glucose mg/dl Hemoglobin A1c (4.5-5.6) % Calcium (8.5-10.1) mg/dl Troponin I High Sens (0-14) pg/ml 11/26/22 11/26/22 11/26/22 Range/Units 20:22 20:05 20:05 WBC 11.08 H (4.8-10.8) K/ul RBC 4.69 (3.93-5.22) M/uL Hgb 13.4 (12.0-16.0) g/dl Hct 41.1 (34.1-44.9) % MCV 87.6 (80.0-100.0) fL MCH 28.6 (25.0-34.0) pg MCHC 32.6 (32.0-36.0) g/dL RDW Std Deviation 43.0 (36.4-46.3) fL RDW Coeff of Marielena 13.4 (11.5-14.5) % Plt Count 377 (130-400) K/uL MPV 10.9 (9.4-12.3) fL Immature Gran % (Auto) 0.5 % Neut % (Auto) 85.8 % Lymph % (Auto) 9.0 % Shackelford % (Auto) 4.3 % Eos % (Auto) 0.0 % Baso % (Auto) 0.4 % Neut # (Auto) 9.51 H (1.4-6.5) K/uL Lymph # (Auto) 1.00 L (1.2-3.4) K/uL Shackelford # (Auto) 0.48 (0.24-0.82) K/uL Eos # (Auto) 0.00 (0-0.50) K/uL Baso # (Auto) 0.04 (0-0.2) K/uL Immature Gran # (Auto) 0.05 H (0.00-0.02) K/uL PT 11.3 (9.0-12.0) Seconds INR 1.1 (0.9-1.1) APTT 24.3 (21.0-31.0) Seconds PTT Ratio 0.9 Sodium (136-145) mmol/L Potassium (3.5-5.1) mmol/L Chloride (98-107) mmol/L Carbon Dioxide (21-32) mmol/L Anion Gap (3-11) BUN (6-23) mg/dl Creatinine (0.6-1.2) mg/dl Est Cr Clr Drug Dosing ml/min Est GFR ( Amer) ml/min Est GFR (Non-Af Amer) ml/min BUN/Creatinine Ratio (10-20) Glucose (70-99(Fasting)) mg/dl POC Glucose 262 H (70-99) mg/dl Estimat Average Glucose mg/dl Hemoglobin A1c (4.5-5.6) % Calcium (8.5-10.1) mg/dl Troponin I High Sens (0-14) pg/ml 11/26/22 11/26/22 Range/Units 19:37 15:01 WBC (4.8-10.8) K/ul RBC (3.93-5.22) M/uL Hgb (12.0-16.0) g/dl Hct (34.1-44.9) % MCV (80.0-100.0) fL MCH (25.0-34.0) pg MCHC (32.0-36.0) g/dL RDW Std Deviation (36.4-46.3) fL RDW Coeff of Marielena (11.5-14.5) % Plt Count (130-400) K/uL MPV (9.4-12.3) fL Immature Gran % (Auto) % Neut % (Auto) % Lymph % (Auto) % Shackelford % (Auto) % Eos % (Auto) % Baso % (Auto) % Neut # (Auto) (1.4-6.5) K/uL Lymph # (Auto) (1.2-3.4) K/uL Shackelford # (Auto) (0.24-0.82) K/uL Eos # (Auto) (0-0.50) K/uL Baso # (Auto) (0-0.2) K/uL Immature Gran # (Auto) (0.00-0.02) K/uL PT (9.0-12.0) Seconds INR (0.9-1.1) APTT (21.0-31.0) Seconds PTT Ratio Sodium (136-145) mmol/L Potassium (3.5-5.1) mmol/L Chloride (98-107) mmol/L Carbon Dioxide (21-32) mmol/L Anion Gap (3-11) BUN (6-23) mg/dl Creatinine (0.6-1.2) mg/dl Est Cr Clr Drug Dosing ml/min Est GFR ( Amer) ml/min Est GFR (Non-Af Amer) ml/min BUN/Creatinine Ratio (10-20) Glucose (70-99(Fasting)) mg/dl POC Glucose (70-99) mg/dl Estimat Average Glucose mg/dl Hemoglobin A1c (4.5-5.6) % Calcium (8.5-10.1) mg/dl Troponin I High Sens 122.4 H* D 67.9 H* (0-14) pg/ml PG Care Time/CCT Total # of Minutes Spent Total Time Spent with Patient: Total time spent is greater than 50% in coordination of care (as documented) at patient's floor/unit and/or counseling patient: Coding Level of Care Code 18810 Subseq Obs Care Lvl 3 Diagnoses Hx of CABG Z95.1 Type 2 diabetes mellitus E11.9 History of TIA (transient ischemic attack) Z86.73 CAD, multiple vessel I25.10
[2022-11-27] MEDS ORDERED: GLIMEPIRIDE 2 MG TAB PO SCH (09:00)
[2022-11-27 11:22] LABS: Partial Thromboplastin Ratio 1.5; Partial Thromboplastin Time 41.7 Seconds (21.0-31.0)
--- NOTE | 2022-11-27 12:26 | Cardiology Progress Note ---
Date of Service November 27, 2022 Assessment & Plan (1) Elevated troponin: Plan: Elevated troponin without chest discomfort. Known severe multivessel coronary disease. Medical management in the short-term. Long-term plan is for revascularization at [facility]. She will be evaluated by cardiac surgery and interventional cardiology. Elevation may be secondary to type II non-ST elevation NM. We will discontinue her heparin prior to disch arge. She will be on aspirin 81 mg daily and Plavix 75 mg daily. (2) Hx of CABG: Plan: 3 out of 4 bypass grafts are occluded. Patent HAGAN to LAD with mild proximal disease. RCA, circumflex, and mid LAD are chronic total occlusions not amenable to PCI. Left main to ostial LAD severely diseased but may be amenable to atherectomy plus PCI and this may improve blood flow in the proximal and mid LAD, diagonal branches, etc. She will be referred to [facility] who performed her original bypass surgery. (3) CAD, multiple vessel: Plan: Blood pressure and heart rate are now at target. Guideline directed medical therapy with low-dose aspirin, carvedilol 3.125 mg p.o. twice daily, but she will not take statin because of prior myalgias. Recommend she restart Repatha as previously recommended when she returns home. Continue isosorbide mononitrate for anginal relief. Ultimately, because of diabetes and cardiomyopathy we would like to add Entresto but current blood pressure would not tolerate. (4) HTN (hypertension): Plan: Blood pressure is at target on carvedilol and Imdur. (5) Dyslipidemia: Plan: High risk. High intensity statin therapy is recommended. Aggressive LDL reduction target. Not clear what statin she previously had been on. She does have a prescription for Repatha which she should begin. (6) Type 2 diabetes mellitus: Plan: Management per hospitalist. She should take her prior home regimen. Because of cardiomyopathy it is reasonable for her to begin SGLT2 inhibitor to optimize her heart failure regimen. However, she is very reluctant to take medications and I suspect she would not take this as directed. It can be addressed further as an outpatient. (7) Right groin pain: Plan: Small mass and soft bruit noted. Also, history of atherosclerosis in the right common femoral artery. We will obtain a arterial duplex to exclude small pseudoaneurysm, AV fistula, etc. If confirmed to be normal then she would be appropriate for discharge from a cardiac standpoint. Plan Awaiting ultrasound results. Plan for discharge if no additional abnormalities. Admission and Anticipated Discharge Date Admission Date: November 26, 2022 Subjective Patient doing well today. She denies any chest pain or shortness of breath. Her back pain resolved upon arrival in her room yesterday. No recurrence. She does note some tenderness at the right groin without radiation to her back or elsewhere. She has been reluctant to take medications as scheduled in the hospital. Fortunately, nursing was eventually able to convince her to take her medications. She complains of need for bowel movement but was unable to go while on the toilet. No other complaints or concerns at this time. Review of Systems Review of Systems: Negative except as per HPI Physical Exam Constitutional: WD/WN, vitals as above (Obese, anxious) Eyes: PERRL, conjunctivae normal, anicteric sclerae ENMT: external ear and nose normal, oropharynx normal Neck: No JVD Respiratory: normal respiratory effort, lungs clear to auscultation (No wheezing, rhonchi, or rales) Cardiovascular: Regular rate and rhythm. S4 gallop. Systolic murmur. No edema. Gastrointestinal (Abdomen): NABS Musculoskeletal: Right groin tenderness. Small mass. Soft bruit. Known femoral artery atherosclerosis. Good distal pulses. Neurologic: Cognition is intact. Speech is fluent. No focal deficits. No tremor. Psychiatric: A+Ox3, euthymic affect (Mildly anxious) Results & Data ([facility]) Vital Signs (Past 12 Hours) Vital Signs Temp Pulse Pulse Resp BP Pulse Ox O2 Del Method 11/27/22 11:52 36.4 C L 71 17 115/74 95 Room Air 11/27/22 10:33 68 11/27/22 07:40 36.3 C L 75 18 135/71 95 Room Air 11/27/22 03:56 36.2 C L 71 18 130/72 95 Room Air PG Care Time/CCT Total # of Minutes Spent Total Time Spent with Patient: Total time spent is greater than 50% in coordination of care (as documented) at patient's floor/unit and/or counseling patient: Coding [place] [address] Subseq Hosp Care Lvl 3 Patient Type Established Diagnoses Elevated troponin R77.8 Hx of CABG Z95.1 CAD, multiple vessel I25.10 HTN (hypertension) I10 Dyslipidemia E78.5 Type 2 diabetes mellitus E11.9 Right groin pain R10.31
[2022-11-27] MEDS: DOCUSATE SODIUM 100 MG CAP PO SCH ×2 (12:39→21:40)
--- NOTE | 2022-11-27 18:28 | Ultrasound Report ---
US arterial duplex LE RT HISTORY: 82 years-old Female exclude pseudoaneurysm acute right groin pain with recent vascular cath eterization COMPARISON: None TECHNIQUE: Multiple real-time sonographic images of the right lower extremity arterial structures wer e obtained assessing grayscale appearance, color and spectral flow FINDINGS: Triphasic waveforms without occlusion noted within the imaged right lower extremity arterial structur es. Additionally, there is a 3.8 x 1.4 x 2.9 cm ovoid structure in the right inguinal tissues which i s contiguous with the adjacent common femoral artery demonstrating to and fro waveforms with peak sys tolic velocities measuring up to 266 cm/s. 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 ACT 112: Negative or not required by law. The above report was generated using voice recognition software. It may contain grammatical, syntax o r spelling errors. Electronically signed by: Francisco Javier Landis M.D. 11/27/2022 6:26 PM
[2022-11-27 19:11] LABS: Partial Thromboplastin Ratio 1.4; Partial Thromboplastin Time 37.6 Seconds (21.0-31.0)
[2022-11-28] MEDS: carvediloL 3.125 MG TAB PO SCH ×2 (08:46→20:23)
[2022-11-28] MEDS: DOCUSATE SODIUM 100 MG CAP PO SCH ×2 (08:46→20:23)
[2022-11-28] MEDS: ASPIRIN 81 MG ECTAB PO SCH (08:46)
[2022-11-28] MEDS: CLOPIDOGREL BISULFATE 75 MG TAB PO SCH (08:46)
[2022-11-28] MEDS: INSULIN ASPART PER UNIT SC SCH ×4 (09:15→20:27)
[2022-11-28] MEDS: ISOSORBIDE MONO EXTENDED REL 60 MG TABCR PO SCH (10:29)
[2022-11-28 10:47] LABS: BUN Creatinine Ratio 18.6 (10-20); Creatinine Clr Calc Pharmacy 45.6 ml/min; Est GFR (African American) 63.9 ml/min; Est GFR (Non-African American) 55.2 ml/min; Magnesium 1.9 mg/dl (1.7-2.4)
[2022-11-28] MEDS ORDERED: bisacodyL 10 MG SUPP PR PRN (11:12)
--- NOTE | 2022-11-28 12:02 | Hospitalist Progress Note ---
Date of Service November 28, 2022 Assessment & Plan (1) Hx of CABG: Plan: Patient w/ history of CABG times 03/2007 presented after outpatient stress echo ordered and prior to stress portion saw wma and decided to proceed with cardiac catheterization Coronary artery disease Cardiac catheterization: 1. Mild to moderate pulmonary hypertension. No evidence of volume overload at this time. Normal cardiac output. 2. Severe multivessel stebbins coronary disease. 3. 3 saphenous vein grafts appear to be occluded. 4. HAGAN to LAD graft is patent without significant disease. Provides collateralization to the RCA, circumflex, and diagonal territories. 5. Left main to ostial LAD stenosis may be amenable to PCI. However, it will likely need atherectomy prior to stent implantation which is unavailable at this institution. Consider referral to tertiary center. Management per primary cardiology team. Carvedilol 3.125mg BID added (I sent rx as noticed none sent with other meds), BP too low for addition of Entresto previously however BP currently 139/72 and messaged primary about thoughts to start entresto while inpatient To restart Repatha outpatient given statin intolerance Continue ASA/Plavix at disharge, Carvedilol 3.125mg BID, imdur, repatha Patient is being arranged for outpatient follow-up with cardiothoracic surgery at [facility] for femoral site to be completed prior to discharge (has known femoral atherosclerotic disease (but good distal pulses)) * IMPRESSION: 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 * Consultation placed for Dr Sheikh, however not in town. Dr Looney to call their office today. Per patient, seeing if able to do something tomorrow vs waiting to see when Dr Sheikh comes back vs need for transfer out. 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 Metformin caused diarrhea at any dose per pt, however NEVER TRIED EXTENDED RELEASE A1c 8.4 BSG AC/HS, sliding scale, pharmacy on consult -- refused AM dose 11/27 as "too much medication" Glu elevated on AM labs, however POC glucose acceptable Discussed SGLT2 vs Metformin XR -- agreeable to start/trial 500mg metformin XR at d/c with food and increase to BID and further titrations outpatient with PCP as well as discussion about starting SGLT2 like Jardiance in follow up Hyperlipidemia statin intolerant, recs for resume/start repatha outpatient History of TIA Continue Plavix 75 mg daily, ASA 81mg daily Constipation -- Has not moved bowels x 2 days. Passing gas/has good bowel sounds, but not as mobile currently --Colace BID, added sennakot daily. She would like to try suppository -- prn available, RN to administer Monitor (2) Pseudoaneurysm following procedure: Plan: reported R groin pain following cardiac catheterization US as above, vascular consulted but not in town Primary to reach out to office vs consider transferring vs waiting until Dr Sheikh back in town (3) CAD, multiple vessel: (4) Type 2 diabetes mellitus: (5) History of TIA (transient ischemic attack): (6) Right groin pain: Plan awaiting determination by primary regarding possible need for thrombin injection for US findings -- attempting to contact Dr Sheikh office (out of town currently) To continue ASA/Plavix at discharge, carvedilol BID Consideration to add Entresto given improvement in BPs Agreed to try metformin XR at d/c -- rx sent, titrate in f/u with PCP Will need outpt f/u [facility] who performed original bypass surgery, however if needing more acute intervention for groin findings may need transferred from current facility Hospitalist service will follow along peripherally, please call with any questions/concerns. Admission and Anticipated Discharge Date Admission Date: November 26, 2022 Supervising Physician Co-Signing Physician Notes I did not personally interview or examine this patient. I did review SARAH Llamas's assessment and plan, and I agree with the following exceptions: Dr. Nitish Lynne to do thrombin injection for pseudoaneurysm on 11/29/22. Subjective Eval this morning, sitting up in bed with , no acute distress. No chest pain/shortness of breath. Seen by Dr Looney and awaiting to see if Dr Sheikh (or possibly Dr Lynne, Dr Looney's partner) able to address US findings rather than needing transfer out. She is hopeful to avoid need for transfer. R groin pain improved from day prior however still present, only really notices it when being touched/pressed upon. No fever/chills, abdominal pain. No further nausea since yesterday AM. Passing some gas, but hasn't moved BM since she came in. Colace added by Dr Looney, added senna and patient agreeable to suppository in meantime. Anxious about having to strain to move bowels and would like to avoid bedpan. Discussed could utilize bedside commode as well w/ assistance. Questions/concerns addressed. Review of Systems Review of Systems: All systems reviewed & are unremarkable except as noted in HPI & below Physical Exam Physical Exam: General: WD/WN female sitting up in bed, NAD, at bedside HEENT: head normocephalic, atraumatic, mmm, trachea midline without deviation Chest: prior sternotomy scar Resp: CTAB, no w/c/r, on room air CV: RRR, +systolic murmur, no pitting edema/calf tenderness GI: +BS, soft/NT : no alicea MSK/Neuro: moves all extremities, no focal deficit Skin: warm, dry, R femoral access site with slight tenderness to palpation (slightly less than day prior), +bruit, good pulses distally Psych: AOX3, cooperative, anxious about need for another procedure/not knowing if needing transferred and also about straining to move her bowels Results & Data Results & Data ([facility]) Vital Signs (Past 12 Hours) Vital Signs Temp Pulse Pulse Resp BP Pulse Ox O2 Del Method 11/28/22 11:09 36.5 C 81 19 139/72 97 Room Air 11/28/22 08:00 36.5 C 81 19 144/75 H 94 Room Air 11/28/22 07:45 83 11/28/22 03:34 73 11/28/22 03:08 36.3 C L 83 157/82 H 93 Room Air Laboratory Results 11/28/22 11/28/22 11/27/22 Range/Units 11:38 09:46 20:36 APTT (21.0-31.0) Seconds PTT Ratio Sodium 135 L (136-145) mmol/L Potassium 4.0 (3.5-5.1) mmol/L Chloride 103 (98-107) mmol/L Carbon Dioxide 24 (21-32) mmol/L Anion Gap 8 (3-11) BUN 18 (6-23) mg/dl Creatinine 0.97 (0.6-1.2) mg/dl Est Cr Clr Drug Dosing 45.6 ml/min Est GFR ( Amer) 63.9 ml/min Est GFR (Non-Af Amer) 55.2 ml/min BUN/Creatinine Ratio 18.6 (10-20) Glucose 239 H (70-99(Fasting)) mg/dl POC Glucose Pending 130 H (70-99) mg/dl Calcium 9.0 (8.5-10.1) mg/dl Magnesium 1.9 (1.7-2.4) mg/dl 11/27/22 11/27/22 Range/Units 18:31 16:56 APTT 37.6 H (21.0-31.0) Seconds PTT Ratio 1.4 Sodium (136-145) mmol/L Potassium (3.5-5.1) mmol/L Chloride (98-107) mmol/L Carbon Dioxide (21-32) mmol/L Anion Gap (3-11) BUN (6-23) mg/dl Creatinine (0.6-1.2) mg/dl Est Cr Clr Drug Dosing ml/min Est GFR ( Amer) ml/min Est GFR (Non-Af Amer) ml/min BUN/Creatinine Ratio (10-20) Glucose (70-99(Fasting)) mg/dl POC Glucose 120 H (70-99) mg/dl Calcium (8.5-10.1) mg/dl Magnesium (1.7-2.4) mg/dl Diagnostic Findings Duplex Scan Lower Extremity Artery 11/27/22 12:00 US arterial duplex LE RT HISTORY: 82 years-old Female exclude pseudoaneurysm acute right groin pain with recent vascular catheterization COMPARISON: None TECHNIQUE: Multiple real-time sonographic images of the right lower extremity arterial structures were obtained assessing grayscale appearance, color and spectral flow FINDINGS: Triphasic waveforms without occlusion noted within the imaged right lower extremity arterial structures. Additionally, there is a 3.8 x 1.4 x 2.9 cm ovoid structure in the right inguinal tissues which is contiguous with the adjacent common femoral artery demonstrating to and fro waveforms with peak systolic velocities measuring up to 266 cm/s. 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 ACT 112: Negative or not required by law. The above report was generated using voice recognition software. It may contain grammatical, syntax or spelling errors. Electronically signed by: Francisco Javier Landis M.D. 11/27/2022 6:26 PM PG Care Time/CCT Total # of Minutes Spent Total Time Spent with Patient: Total time spent is greater than 50% in coordination of care (as documented) at patient's floor/unit and/or counseling patient: Coding Level of Care Code 86463 Subseq Obs Care Lvl 2 Diagnoses Hx of CABG Z95.1 Pseudoaneurysm following procedure T81.718A; I72.9 CAD, multiple vessel I25.10 Type 2 diabetes mellitus E11.9 History of TIA (transient ischemic attack) Z86.73 Right groin pain R10.31
--- NOTE | 2022-11-28 14:39 | Pharmacy Report ---
Pharmacy Glycemic Short Note 2 - Date of Service November 28, 2022 - Glycemic Short BSG Results (Last 24 hours): 11/27/22 11/27/22 11/28/22 16:56 20:36 09:46 Glucose 239 H POC Glucose 120 H 130 H 11/28/22 11:38 Glucose POC Glucose 181 H OUTPATIENT ANTIDIABETIC REGIMEN: * Glimepiride 1mg PO Daily * A1c 8.4% 11/27/22 ASSESSMENT: 11/28 * Patient received total of 21 units of insulin yesterday, all of which were correctional insulin * Fasting BSG 153 mg/dL - will hold basal insulin for now and trend * Continue novolog 11/27 * 82 year old female, POD1 cardiac cath, on heparin drip, uncontrolled Type 2 DM, on glimepiride [employer], but stopped taking d/t abdominal cramping. Pt also does not tolerate metformin d/t diarrhea at any dose. Considering SGLT2 upon DC w/ CHF comorbidity. * Oral agents are not recommended for inpatient use d/t drug interactions, changing PO intake, and difficulty titrating for acute hyper/hypoglycemia. * Will hold oral agents for admission and utilize SQ basal bolus insulin regimen which is the recommended regimen for inpatient glycemic control. * Will initiate weight based insulin dosing for insulin guicho patient and titrate based on BSG trends. PLAN FOR INPATIENT GLYCEMIC CONTROL: * Hold outpatient oral diabetes medications * Basal insulin * Lantus - hold * Bolus insulin * NovoLog per scale ACHS or Q6hrs while NPO * Goal Range: Low 110 mg/dL - High 140 mg/dL * Correction Factor: 30 mg/dL/unit * Nutritional / Prandial insulin per carb ratio of 1 unit per 10 grams CHO consumed
[2022-11-28] MEDS: HEPARIN SODIUM/DEXTROSE 25,000 UNITS/500 ML BAG IV SCH (16:07)
[2022-11-28] MEDS: SENNA 8.6 MG TAB PO SCH (16:54)
--- NOTE | 2022-11-28 17:09 | Cardiology Progress Note ---
Date of Service November 28, 2022 Assessment & Plan (1) Pseudoaneurysm following procedure: Plan: Patient has known atherosclerotic disease in the right groin. She sustained a pseudoaneurysm at some point post femoral artery approach coronary angiography. Stable at this point. She will undergo thrombin injection tomorrow by Dr. Lynne. (2) Dyslipidemia: Plan: High risk. High intensity statin therapy is recommended. Patient has reported intolerance to statin. She has Repatha prescribed for home use which she has not yet initiated. This will be initiated after discharge. (3) HTN (hypertension): Plan: Blood pressure remains labile. Today seems to be improved. She will continue with current regimen including carvedilol 3.125 mg p.o. twice daily and Imdur 60 mg daily (also for angina). Given her reduced ejection fraction on echocardiogram she should also be considered for TOBY inhibitor/ARB/Entresto. After revascularization we may be able to discontinue Imdur to allow for those medications from a blood pressure standpoint. (4) Coronary artery disease: Plan: This is severe with chronic total occlusion of the northway RCA, circumflex, and mid LAD. Additionally, she has chronic total occlusion of her saphenous vein grafts. Her HAGAN to LAD is patent and much of her myocardial perfusion occurs via collateralization from this vessel. He does have mild proximal disease in the HAGAN. She also has severe northway left main into ostial LAD stenosis. The proximal part of the LAD and its diagonal branch do provide significant septal and anterolateral myocardial perfusion which could contribute to her symptoms. We have outpatient plan for referral to [facility] regarding evaluation for redo CABG versus complex PCI. For now, she will remain on dual antiplatelet therapy in addition to guideline directed medical therapy with carvedilol. Repatha will be started as an outpatient. Plan Fixed pseudoaneurysm tomorrow. If she remains stable then she will be appropriate for discharge with plan for outpatient cardiology office visit. This has been scheduled at 3 PM on December 04 with Khoi Alarcon. Admission and Anticipated Discharge Date Admission Date: November 26, 2022 Subjective Patient without chest pain. Still with mild right groin pain. Denies shortness of breath. Is concerned about bowel movement. Called the vascular surgery office but they did not answer. Texted the physicians administrative assistant receptionist for vascular surgery but did not receive any response. Evidently, Dr. Sheikh is unavailable till next Friday at the earliest. I then discussed with my colleague Dr. Lynne the situation with regard to pseudoaneurysm treatment in the absence of vascular surgery and interventional radiology. He informed me that he would review the films and that he could perform thrombin injection if appropriate. Therefore, patient will remain in the hospital with tentative plan for thrombin injection tomorrow. Review of Systems Review of Systems: Negative except as per HPI Physical Exam Constitutional: WD/WN, vitals as above Neck: No JVD Respiratory: Clear to auscultation bilaterally. No wheezing, rhonchi, or rales Cardiovascular: Regular rate and rhythm. Systolic murmur. S4 gallop. No edema. Musculoskeletal: no cyanosis or clubbing, extremities motor strength 5/5 (Right groin access site with small mass and bruit. Tender to palpation. ) Neurologic: Cognition intact. Speech fluent. No focal deficits. Psychiatric: A+Ox3, euthymic affect Results & Data ([facility]) Vital Signs (Past 12 Hours) Vital Signs Temp Pulse Pulse Resp BP Pulse Ox O2 Del Method 11/28/22 16:05 37.1 C 74 19 116/67 97 Room Air 11/28/22 11:09 36.5 C 81 19 139/72 97 Room Air 11/28/22 08:00 36.5 C 81 19 144/75 H 94 Room Air 11/28/22 07:45 83 PG Care Time/CCT Total # of Minutes Spent Total Time Spent with Patient: Total time spent is greater than 50% in coordination of care (as documented) at patient's floor/unit and/or counseling patient: Coding [place] [address] Subseq Hosp Care Lvl 2 Patient Type Established Diagnoses Pseudoaneurysm following procedure T81.718A; I72.9 Dyslipidemia E78.5 HTN (hypertension) I10 Coronary artery disease I25.10
[2022-11-29] MEDS: ISOSORBIDE MONO EXTENDED REL 60 MG TABCR PO SCH (07:55)
[2022-11-29] MEDS: carvediloL 3.125 MG TAB PO SCH (07:55)
[2022-11-29] MEDS: DOCUSATE SODIUM 100 MG CAP PO SCH (07:55)
[2022-11-29] MEDS: SENNA 8.6 MG TAB PO SCH (07:55)
[2022-11-29] MEDS: ASPIRIN 81 MG ECTAB PO SCH (07:55)
[2022-11-29] MEDS: CLOPIDOGREL BISULFATE 75 MG TAB PO SCH (07:55)
[2022-11-29] MEDS: INSULIN ASPART PER UNIT SC SCH ×2 (08:55→13:44)
--- NOTE | 2022-11-29 09:03 | Hospitalist Progress Note ---
Date of Service November 29, 2022 Assessment & Plan (1) Coronary artery disease: Plan: Patient w/ history of CABG times 03/2007 presented after outpatient stress echo ordered and prior to stress portion saw wma and decided to proceed with cardiac catheterization EF reduced to 30-35% with global hypokinesis, inferior wall akinesis, septal wall akinesis. Coronary artery disease Cardiac catheterization: 1. Mild to moderate pulmonary hypertension. No evidence of volume overload at this time. Normal cardiac output. 2. Severe multivessel [place] coronary disease. 3. 3 saphenous vein grafts appear to be occluded. 4. HAGAN to LAD graft is patent without significant disease. Provides collateralization to the RCA, circumflex, and diagonal territories. 5. Left main to ostial LAD stenosis may be amenable to PCI. However, it will likely need atherectomy prior to stent implantation which is unavailable at this institution. Consider referral to tertiary center. Management per primary cardiology team. Carvedilol 3.125mg BID added (I sent rx as noticed none sent with other meds), BP too low for addition of Entresto previously however BP improved and messaged primary about thoughts to start Entresto while inpatient Continue ASA/Plavix, Imdur,. Repatha to start outpatient given statin intolerance Patient is being arranged for outpatient follow-up with cardiothoracic surgery at [facility] US for femoral site to be completed prior to discharge this week (has known femoral atherosclerotic disease (but good distal pulses)) * IMPRESSION: 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 * Consultation placed for Dr Sheikh, however not in town. Dr Looney to call their office today. Per patient, seeing if able to do something tomorrow vs waiting to see when Dr Sheikh comes back vs need for transfer out. Dr Lynne to perform thrombin injection today NPO for procedure Will order NS @ 70cc/hr while NPO for procedure (2) Hx of CABG: Plan: may need redo vs complex PCI (3) Pseudoaneurysm following procedure: Plan: reported R groin pain following cardiac catheterization US as above, vascular consulted but not in town Primary to reach out to office vs consider transferring vs waiting until Dr Sheikh back in town (4) CAD, multiple vessel: Plan: as above, needs f/u 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 Metformin caused diarrhea at any dose per pt, however NEVER TRIED EXTENDED RELEASE A1c 8.4 BSG AC/HS, sliding scale, pharmacy on consult -- refused AM dose 11/27 as "too much medication" Glu elevated on AM labs, however POC glucose acceptable Discussed SGLT2 vs Metformin XR -- agreeable to start/trial 500mg metformin XR at d/c with food and increase to BID and further titrations outpatient with PCP as well as discussion about starting SGLT2 like Jardiance in follow up (6) History of TIA (transient ischemic attack): Plan: Continue Plavix 75 mg daily, ASA 81mg daily (7) Right groin pain: Plan: 2nd to pseudoaneurysm Dr Lynne to perform thrombin injection today, NPO, IVF while NPO ordered for this morning (8) Constipation: Plan: Had not moved bowels x 2 days. Passing gas/has good bowel sounds, but not as mobile currently --Colace BID, added sennakot daily. Given suppository 11/28, +BM following. +BS following Plan NPO for thrombin injection with Dr Lynne NSS ordered while NPO To continue ASA/Plavix, carvedilol. Consideration to add Entresto relayed to primary given improvement in BPs. To start repatha outpatient. To have outpt f/u [facility] for further treatment/redo CABG vs complex PCI. Depending thrombin injection/any complications may need transferred sooner -- disposition per primary service Hospitalist service will follow along while inpatient -- please call with any questions/concerns Admission and Anticipated Discharge Date Admission Date: November 26, 2022 Supervising Physician Co-Signing Physician Notes I did not personally interview or examine the patient. I did review SARAH Llamas's assessment and plan and agree with the following exceptions: none Subjective eval this morning, doing alright waiting to see Dr Lynne for thrombin injection. Not having any fevers/chills/chest pain/shortness of breath. Pain about the same to her groin. She did have a BM yesterday. Some nausea this morning but no vomiting, no abdominal pain. She notes she thinks it's from taking her pills on an empty stomach. Discussed antiemetics available prn but to alert nursing of any worsening symptoms. No lightheaded/dizziness/palpitations reported. Questions/concerns addressed at this time. Review of Systems Review of Systems: All systems reviewed & are unremarkable except as noted in HPI & below Physical Exam Physical Exam: General: WD/WN female sitting up in bed, at bedside, NAD HEENT: head normocephalic, atraumatic, mm slightly dry, trachea midline without deviation Chest: prior sternotomy scar Resp: CTAB, diminished in the bases, on room air CV: RRR, +systolic murmur, S4 gallop,, no pitting edema/calf tenderness GI: +BS, soft/NT : no alicea MSK/Neuro: moves all extremities, no focal deficit Skin: warm, dry, R femoral access site with slight tenderness to palpation (slightly less than day prior), +bruit, good pulses distally Psych: AOX3, cooperative, anxious about upcoming procedure Results & Data Results & Data ([facility]) Vital Signs (Past 12 Hours) Vital Signs Temp Pulse Pulse Resp BP Pulse Ox O2 Del Method 11/29/22 08:01 36.9 C 74 20 137/78 93 Room Air 11/29/22 03:02 37.1 C 76 18 130/71 93 Room Air 11/29/22 00:04 36.8 C 77 18 136/72 95 Room Air Laboratory Results 11/29/22 11/28/22 11/28/22 Range/Units 07:16 20:20 16:50 Sodium (136-145) mmol/L Potassium (3.5-5.1) mmol/L Chloride (98-107) mmol/L Carbon Dioxide (21-32) mmol/L Anion Gap (3-11) BUN (6-23) mg/dl Creatinine (0.6-1.2) mg/dl Est Cr Clr Drug Dosing ml/min Est GFR ( Amer) ml/min Est GFR (Non-Af Amer) ml/min BUN/Creatinine Ratio (10-20) Glucose (70-99(Fasting)) mg/dl POC Glucose 163 H 141 H 103 H (70-99) mg/dl Calcium (8.5-10.1) mg/dl Magnesium (1.7-2.4) mg/dl 11/28/22 11/28/22 11/28/22 Range/Units 11:38 09:46 08:01 Sodium 135 L (136-145) mmol/L Potassium 4.0 (3.5-5.1) mmol/L Chloride 103 (98-107) mmol/L Carbon Dioxide 24 (21-32) mmol/L Anion Gap 8 (3-11) BUN 18 (6-23) mg/dl Creatinine 0.97 (0.6-1.2) mg/dl Est Cr Clr Drug Dosing 45.6 ml/min Est GFR ( Amer) 63.9 ml/min Est GFR (Non-Af Amer) 55.2 ml/min BUN/Creatinine Ratio 18.6 (10-20) Glucose 239 H (70-99(Fasting)) mg/dl POC Glucose 181 H 153 H (70-99) mg/dl Calcium 9.0 (8.5-10.1) mg/dl Magnesium 1.9 (1.7-2.4) mg/dl PG Care Time/CCT Total # of Minutes Spent Total Time Spent with Patient: Total time spent is greater than 50% in coordination of care (as documented) at patient's floor/unit and/or counseling patient: Coding Level of Care Code 68006 Subseq Obs Care Lvl 2 Diagnoses Coronary artery disease I25.10 Hx of CABG Z95.1 Pseudoaneurysm following procedure T81.718A; I72.9 CAD, multiple vessel I25.10 Type 2 diabetes mellitus E11.9 History of TIA (transient ischemic attack) Z86.73 Right groin pain R10.31 Constipation K59.00
[2022-11-29] MEDS ORDERED: THROMBIN 5000 UNITS KIT ONE ×2 (09:21→09:45)
[2022-11-29] MEDS ORDERED: SODIUM CHLORIDE 0.9% 500 ML IV SCH (09:30)
--- NOTE | 2022-11-29 14:30 | Pharmacy Report ---
Pharmacy Glycemic Sign Off Nt - Date of Service November 29, 2022 - Assessment & Plan ASSESSMENT: * Pharmacy was consulted by 11/26 for glycemic control and to write orders per [facility] inpatient glycemic control protocol. * Major changes made by pharmacy to antidiabetic regimen include: * added novolog scale / Patient refusing long acting insulin * Patient has been receiving/requiring 15-20 units of insulin per day for adequate glycemic control * BSGs ranging 103-181 mg/dl * Regimen has only required minor adjustments over the past 48hrs to achieve this level of control * Please see recommendations for outpatient antidiabetic regimen below. PLAN FOR INPATIENT GLYCEMIC CONTROL: No changes needed to current regimen. * Continue NovoLog per scale ACHS/Q6hrs while NPO * Goal range = 110-140 mg/dl * CF = 30 mg/dl/unit * CR = 1 unit for ever 10 g CHO consumed * Pharmacy is signing off of glycemic consult and will no longer be making adjustments to inpatient regimen. Please feel free to re-consult if needed. Thank you.
--- NOTE | 2022-11-29 15:51 | Discharge Summary ---
Date of Service November 29, 2022 Principal Diagnosis Severe CAD Pseudoaneurysm post catheterization Discharge Data Allergies Allergy/AdvReac Type Severity Reaction Status Date / Time codeine Allergy Unknown ANXIOUS Verified 10/31/22 11:24 Penicillins Allergy Unknown RASH Verified 10/31/22 11:24 Etbuaac-CNO-FpE Reductase AdvReac Unknown Unknown Verified 11/26/22 14:54 Inhibitor Consultations 11/26/22 14:42 Consult Hospitalist Routine 11/27/22 18:50 Consult Vascular Surgery Routine Procedures Performed Operation Date: 11/26/22 09:30 Actual Procedures p Cath, Right and Left with Grafts - Jason Looney MD, PhD s Ultrasound Vascular Access - Jason Looney MD, PhD Ordered Studies 11/26/22 07:03 CL Cath Imgs for PACS use only Routine 11/27/22 12:00 US doppler leg [US arterial duplex LE RT] Urgent Total Time Total Time Spent Total Time Spent (In Minutes): 45 minutes Discharge Plan Discharge Items Patient Disposition: Home - Self-Care Reason For Visit: Chest Pain; Dyspnea; Abnormal Stress; CAD Discharge Diagnosis: severe MV CAD. NSTEMI Pseudoaneurysm Condition on Discharge: Good Activity: Per Instructions section Non-emergency contact: Christmas Tree Contractor Call non-emergency contact if: you have any medication questions, your symptoms worsen, your pain is not controlled, you have a fever and your wound has in creased redness Follow-up/Referrals: Bhavesh Winn MD [Primary Care Provider] - Diet: Heart Healthy and Low Sodium (2gm) Addtl Attending Provider Instructions: ACTIVITY RECOMMENDATIONS: It is common to feel weak and fatigue for a few days. * Do not drive or operate any motorized equipment for the next three days. * Limit stair usage (2 or 3 trips a day only) for the next three days. * Do not lift anything heavier than 10 pounds for the next three days. * Do not engage in vigorous exercise or any sports for the next five days. * You may shower the day after your procedure, but do not immerse the area for three days. Cleanse the site gently with soap and water. SPECIAL CARE INSTRUCTIONS: * You may replace the pressure dressing or band-aid the morning after the procedure. * After your procedure, it is normal to have a small bruise or small lump at the site. Examine your site daily for any change in the bruise or lump, redness, swelling, drainage or numbness. Notify your doctor if any change. BLEEDING: * If there is a small amount of bleeding at the site, lie down and apply firm pressure with a clean cloth for ten minutes. When the bleeding stops, lie quietly keeping the procedure limb straight for six hours. Notify your doctor as soon as possible. * If the bleeding does not stop after ten minutes or if there is a large amount of bleeding or spurting, call 911 immediately. Continue to lie down and hold firm pressure until help arrives. SKIN IRRITATION: * You may experience some redness and/or swelling in the area where radiation was administered. If any skin irritation occurs, please contact your family physician. FOLLOW UP VISIT: Keep any scheduled doctor appointments. Addtl Engineer Third Assistant Provider Instructions: You should continue aspirin 81mg and Plavix 75mg daily. You have been started on carvedilol 3.125mg by mouth twice a day to help your heart. You are being set up follow up with [facility] for further treatment given findings on cardiac catheterization. You should resume/start the Repatha for cholesterol given prior adverse effects from statins. Regarding diabetes/risk stratification, your A1c was elevated to 8.4. 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 We have sent a prescription for extended release metformin (limits GI side effects) and you should take ONE 500mg tablet once daily WITH food in the morning and after 1-2 weeks you can increase this to twice a day (and up to 1000mg twice daily eventually if tolerated) to obtain better control. You should follow up for further discussions with primary care and may want to consider addition of medication called Jardiance which can also help with heart failure but you can discuss with Dr Winn before starting. Pending Studies at Discharge: No Studies:: cardiac cath arterial doppler, R groin echocardiogram Stand-Alone Forms: [facility] Medications and DC Order Prescriptions: New metformin 500 mg tablet extended release 24 hr 500 mg PO BID Qty: 60 0RF Rx Instructions: take 1 tablet once daily for a week, then increase to twice daily if tolerated carvedilol 3.125 mg Tablet 3.125 mg PO BID Qty: 60 0RF Continued triamcinolone acetonide 0.1 % cream See Rx Instructions TOP ONCE Qty: 30 2RF Rx Instructions: 1 topical once; Apply to affected areas twice daily x 1 week, then stop x 1 week. Repeat course.; clopidogrel 75 mg tablet 75 mg PO DAILY Qty: 90 3RF cholecalciferol (vitamin D3) 125 mcg (5,000 unit) capsule 125 mcg PO DAILY magnesium citrate 100 mg capsule 100 mg PO DAILY glimepiride 2 mg tablet 1 mg PO DAILY zinc gluconate 50 mg tablet 50 mg PO .COMPLEX Rx Instructions: 50 mg orally once a week; aspirin [Adult Low Dose Aspirin] 81 mg tablet,delayed release (DR/EC) 81 mg PO DAILY Qty: 90 3RF nitroglycerin [Nitrostat] 0.4 mg tablet, sublingual 0.4 mg sublingual Q5M PRN (Reason: chest pain) Qty: 25 2RF Rx Instructions: do not exceed 3 doses per episode, if chest pain not resolved after 3rd dose, call 911 Repatha SureClick 140 mg/mL pen injector 140 mg subcut .every 2 weeks Qty: 2 11RF cinnamon bark [Cinnamon] 500 mg capsule 500 mg PO DAILY coenzyme Q10 [Co Q-10] 400 mg capsule See Rx Instructions .ROUTE .COMPLEX Rx Instructions: follow rx glucosamine sulfate PO (DME) lancets [OneTouch Delica Lancets] 33 gauge misc See Dose Instructions .ROUTE .MEDSUPPLY Qty: 100 Rx Instructions: As directed (DME) OneTouch Verio test strips strip See Dose Instructions .ROUTE .MEDSUPPLY Qty: 10 Rx Instructions: As directed cyanocobalamin (vitamin B-12) 1,000 mcg tablet, sublingual SL Hair,Skin and Nails Tablet 2 tab PO .COMPLEX Rx Instructions: 2 tabs orally 2 times a week; isosorbide mononitrate 60 mg tablet extended release 24 hr 60 mg PO QAM Qty: 30 5RF albuterol sulfate 90 mcg/actuation HFA aerosol inhaler 2 puff inhalation Q6H PRN (Reason: shortness of breath or wheezing or cough) Qty: 8.5 5RF Discharge Orders: Discharge Order (Routine); Ordered 11/29/22 Ordered By: Jason Looney Admission Data Admit Date/Time: 11/29/22 12:58 Attending Provider: Sarah Lopez Admit Provider: Jason Looney Primary Care Provider: Bhavesh Winn Other Providers: Nj Garcias ; Jason Looney ; Cain Sheikh Coding Level of Care Code Established Pt D/C DAY MANAGEMENT >30 MINS Patient Type Established Addendum November 29, 2022 15:40 Patient was scheduled for outpatient cardiac catheterization. She underwent catheterization which demonstrated occluded vein grafts, occluded [place] vessels with a patent HAGAN to LAD bypass graft. Initial plan was for outpatient referral to [facility] regarding surgical versus percutaneous revascularization. However, patient was kept overnight for observation because of back pain. She was noted to have elevated troponin. The following day she complained of groin pain. Physical exam was consistent with small mass and a bruit. Ultrasound demonstrated evidence of a small pseudoaneurysm. Patient's medications were optimized. On the day of discharge she was seen by Dr. Lynne for thrombin injection of her pseudoaneurysm. However, by that point ultrasound demonstrated the pseudoaneurysm had clotted off and therefore she no longer required thrombin injection. At this time, it she is feeling well and is appropriate for discharge home. She will have limitations on her physical activity until she is evaluated in our office as an outpatient and referred to cardiac surgery at [facility]. We will optimize her medical therapy with regard to coronary disease and chronic systolic heart failure. She has no acute decompensated heart failure at this time. We are not providing TOBY inhibitor/ARB/Entresto at this time because cardiac surgery oftentimes does not want these medications on board perioperatively as there is some evidence that these worsen outcomes for coronary artery bypass grafting. However, after revascularization we will complete optimization of her medical therapy including the addition of these agents and continuation of her heart failure indicated beta-moisés, addition of spironolactone, and addition of SGLT2 inhibitor. Also, if her EF remains below 35% then life vest plus or minus ICD as indicated. Unfortunately, she tends to be noncompliant and addition of LifeVest at this moment would be unlikely to be complied with. She is to be seen in the office on December 04 where we will revisit these issues. Vital signs are stable (see chart) General: Awake, alert, oriented, obese elderly female. No acute distress. HEENT: Extraocular muscles intact. The oral mucosa is pink and moist. Sclera are anicteric. Neck: No JVD. Lungs: Bilateral basilar crackles which clear with deep inspiration. No wheezing, rhonchi. Cardiovascular: Regular rate and rhythm. Grade 2 out of 6 systolic murmur. S4 gallop. Abdomen: Nontender. Normal active bowel sounds. Extremities: No edema. Good distal perfusion. Mild ecchymosis and tenderness of the right groin. Bruit is not heard at this time. Neurologic: Cognition is intact. Speech is fluent. No focal deficits.
--- NOTE | 2022-12-09 12:53 | Coding Query ---
To promote full compliance with coding requirements relating to patient care, provider participation is requested in all cases of mascara molder uncertainty. Please assist us with the question(s) below: Coding Question(s): The diagnosis below was documented in the 11/27 Cardiology Progress Note, then subsequently fell off all further documentation. Please indicate if it is still a possible diagnosis or ruled out. Physician's Response(s): TYPE 2 NON-ST ELEVATION MT - (the 11/27 Cardiology PN documents under elevated troponin, "Elevation may be secondary to type II non-ST elevation MT.") ( x ) Diagnosed and POA ( ) Diagnosed and not POA ( ) Ruled out ( ) Other (please specify) MTDD
--- NOTE | 2022-12-09 12:55 | Coding Query ---
CODING QUERY To promote full compliance with coding requirements relating to patient care, provider participation is requested in all cases of supervisor front uncertainty. Please assist us with the question(s) below: Coding Question(s): Please specify below, in your clinical opinion, regarding the Pseudoaneurysm post catheterization: ( x ) likely a Postoperative/postprocedural Complication ( ) Not a Postoperative/postprocedural Complication ( ) Other: Please Specify Physician's Response(s): Thank you Jovana Belcher Principal Diagnosis: "that condition established after study, to be chiefly responsible for occasioning the admission of the patient to the hospital for care." Co-Existing Principal Diagnosis: "when two or more diagnoses equally meet the criteria for principal diagnosis as determined by the circumstances of admission, diagnostic work up, and/or therapy provided, and the Alphabetic Index, Tabular List, or another coding guideline does not provide sequencing direction, any one of the diagnoses may be sequenced first." "When the physician has documented what appears to be a current diagnosis in the body of the record, but has not included the diagnosis in the final diagnostic statement, the physician should be asked whether the diagnosis should be added." (Source Coding [facility] 2 QTR90. p3-4) ALVARO
== END 2022-11-29 17:36 | disposition home or self-care (01) | DRG 281 ==
LOC: 4W 08:07 → CC 08:07 → SUATTDRO 14:37 → OBSVTOIN 14:37 → SUATTDRO 11-29 12:58